=== PATIENT | male | born 1970 | race Caucasian/White ===

== ENCOUNTER 2021-10-19 03:23 | Inpatient (IN) | payer OTHER, SELFPAY ==
[2021-10-19] MEDS ORDERED: ceFAZolin (BATCH) 2 GM/100 ML BAG ONE (03:30)
[2021-10-19] MEDS ORDERED: Tranexamic Acid 1,000 MG/10 ML VIAL ONE (03:30)
[2021-10-19] MEDS ORDERED: Boostrix 0.5 ML (Tdap) VIAL ONE (03:30)
[2021-10-19 04:22] LABS: Hemoglobin 10.1 g/dL (14.0-18.0); Mean Corpuscular HGB CONC 30.1 g/dL (32.0-36.0); Mean Corpuscular Hemoglobin 25.1 pg (27.0-31.0); Mean Corpuscular Volume 83.3 fL (78.0-98.0); Mean Platelet Volume 8.3 fL (7.4-10.4); Platelet Count 382 thou/uL (130-400); RBC Distribution Width 15.8 % (11.5-14.5); Red Blood Cell (RBC) Count 4.03 mill/uL (4.70-6.10); White Blood Cell (WBC) Count 17.1 thou/uL (4.8-10.8)
[2021-10-19 04:27] LABS: Lactic Acid 5.2 mmol/L (0.5-2.2)
[2021-10-19 04:29] LABS: ALT (SGPT) 24 U/L (8-55); AST (SGOT) 33 U/L (5-34); Acetaminophen Less than 10.0 mcg/mL (10.0-30.0); Albumin 2.7 g/dL (3.5-5.0); Alcohol Less than 10 mg/dL (Less than 10); Alkaline Phosphatase 80 U/L (40-110); Anion Gap 15 mmol/L (10-20); BUN (Urea Nitrogen) 13 mg/dL (8.9-20.6); Bilirubin, Total 0.3 mg/dL (0.2-1.2); Calc. Creatinine Clearance 0 mL/min (70-130); Calcium 7.7 mg/dL (7.8-10.44); Carbon Dioxide 20 mmol/L (22-29); Chloride 108 mmol/L (98-107); Globulin 3.7 g/dL (2.4-3.5); Glucose 172 mg/dL (70-105); Magnesium 1.6 mg/dL (1.6-2.6); Potassium 3.8 mmol/L (3.5-5.1); Protein, Total 6.4 g/dL (6.0-8.3); Salicylate Less than 8.0 mg/dL (15.0-30.0); Sodium 139 mmol/L (136-145)
[2021-10-19 04:30] LABS: Lipase 57 U/L (8-78)
[2021-10-19 04:33] LABS: Phosphorus 1.9 mg/dL (2.3-4.7)
[2021-10-19] MEDS ORDERED: Ketorolac Tromethamine 30 MG/ML VIAL ONE (04:35)
[2021-10-19] MEDS ORDERED: Ondansetron PF 4 MG/2 ML Vial ONE (04:35)
[2021-10-19] MEDS ORDERED: Morphine 4 MG/ML VIAL ONE (04:35)
[2021-10-19 04:46] LABS: MDiff Complete? YES
[2021-10-19 04:47] LABS: Band 20 % (5-11); Eosinophils 1 % (0-10); Lymphocytes 8 % (21-51); Monocytes 3 % (0-10); Neutrophil 68 % (42-75)
[2021-10-19 05:40] LABS: INR-International Normal Ratio 1.1; PTT 27.4 sec (22.9-36.1); Prothrombin Time 14.3 sec (12.0-14.7)
[2021-10-19] MEDS ORDERED: Dextrose 5% in Water 1,000 ML IV PRN (05:55)
[2021-10-19] MEDS ORDERED: Insulin Regular 300 UNITS/3 ML VIAL SC PRN (05:55)
[2021-10-19] MEDS ORDERED: Ondansetron PF 4 MG/2 ML Vial IVP PRN (05:55)
[2021-10-19] MEDS ORDERED: Dextrose 50% Abboject 50 ML SYRINGE SLOW IVP PRN (05:55)
[2021-10-19] MEDS ORDERED: traMADol HCl 50 MG TAB PO PRN (06:00)
[2021-10-19] MEDS ORDERED: Fentanyl 100 MCG/2 ML VIAL SLOW IVP PRN (06:01)
[2021-10-19] MEDS ORDERED: Magnesium 2 GM/50 ML(in water) 2 GM in Premix Bag 1 BAG IVPB SCH (06:15)
[2021-10-19] MEDS ORDERED: Norepinephrine 8 MG/0.9% NS 250 ML IVPB SCH (06:15)
[2021-10-19] MEDS ORDERED: Dexamethasone 10 MG/ML VIAL ONE (06:53)
[2021-10-19] MEDS ORDERED: Norepinephrine 8 MG/0.9% NS 250 ML ONE (07:23)
[2021-10-19] MEDS ORDERED: Potassium Phosphate 30 MMOL in Sodium Chloride 0.9% 250 ML 250 ML IVPB SCH (10:00)
[2021-10-19] MEDS ORDERED: Iopamidol-370 76% 500 ML 1 ML ONE (10:53)
[2021-10-19] MEDS: Acetaminophen 500 MG TAB PO SCH ×3 (11:07→23:31)
[2021-10-19] MEDS: Famotidine/PF 20 mg/2ml Vial SLOW IVP SCH ×2 (11:08→20:10)
[2021-10-19] MEDS: Polyethylene Glycol 3350 17 GM Packet PO SCH (11:17)
[2021-10-19] MEDS: Senokot S 8.6-50 MG TAB PO SCH ×2 (11:18→20:10)
[2021-10-19 13:56] LABS: SARS-CoV-2 NAA Rapid Test Not Detected (NotDetected)
[2021-10-19] MEDS: Sodium Chloride 0.9% 1,000 ML IV SCH (16:03)
[2021-10-19] MEDS: Gabapentin 300 MG CAP PO SCH ×2 (16:04→20:08)
[2021-10-19] MEDS: hydrALAZINE 20 MG/ML VIAL SLOW IVP PRN (21:32)
[2021-10-20 05:32] LABS: #Lymphocytes 0.6 thou/uL (1.20-3.40); #Monocytes 0.4 thou/uL (0.11-0.59); #Neutrophils 8.4 thou/uL (1.40-6.50); %Eosinophils 0.1 % (0.0-10.0); %Lymphocytes 6.1 % (21.0-51.0); %Monocytes 4.6 % (0.0-10.0); %Neutrophils 89.2 % (42.0-75.0); Hemoglobin 8.2 g/dL (14.0-18.0); Mean Corpuscular Hemoglobin 25.5 pg (27.0-31.0); Mean Corpuscular Volume 85.1 fL (78.0-98.0); Mean Platelet Volume 7.5 fL (7.4-10.4); Platelet Count 280 thou/uL (130-400); RBC Distribution Width 15.7 % (11.5-14.5); White Blood Cell (WBC) Count 9.4 thou/uL (4.8-10.8)
[2021-10-20] MEDS: Acetaminophen 500 MG TAB PO SCH ×3 (05:37→17:26)
[2021-10-20 05:50] LABS: Anion Gap 9 mmol/L (10-20); BUN (Urea Nitrogen) 12 mg/dL (8.9-20.6); Calc. Creatinine Clearance 289 mL/min (70-130); Calcium 7.9 mg/dL (7.8-10.44); Carbon Dioxide 27 mmol/L (22-29); Chloride 107 mmol/L (98-107); Glucose 125 mg/dL (70-105); Magnesium 2.3 mg/dL (1.6-2.6); Phosphorus 3.4 mg/dL (2.3-4.7); Potassium 4.5 mmol/L (3.5-5.1); Sodium 138 mmol/L (136-145)
[2021-10-20] MEDS: Famotidine/PF 20 mg/2ml Vial SLOW IVP SCH ×2 (08:25→21:46)
[2021-10-20] MEDS: Aspirin 325 mg Enteric Coated Tablet PO SCH (08:25)
[2021-10-20] MEDS: Polyethylene Glycol 3350 17 GM Packet PO SCH (08:25)
[2021-10-20] MEDS: Gabapentin 300 MG CAP PO SCH ×3 (08:26→21:44)
[2021-10-20] MEDS: Ascorbic Acid 500 mg Chewable Tablet PO SCH ×2 (08:26→21:44)
[2021-10-20] MEDS: Ferrous Sulfate 325 MG TAB PO SCH ×2 (08:28→17:26)
[2021-10-20] MEDS: Senokot S 8.6-50 MG TAB PO SCH ×2 (08:28→21:44)
[2021-10-20] MEDS: Lisinopril 10 MG TAB PO SCH (08:29)
[2021-10-20] MEDS: Sodium Chloride 0.9% 1,000 ML IV SCH (16:03)
[2021-10-20] MEDS: Calcium Carbonate 600 MG + Vit D TAB PO SCH (17:26)
[2021-10-21] MEDS: Acetaminophen 500 MG TAB PO SCH ×5 (00:02→23:30)
[2021-10-21] MEDS: Cyclobenzaprine 10 MG TAB PO PRN ×2 (00:02→23:31)
[2021-10-21 06:09] LABS: Anion Gap 9 mmol/L (10-20); BUN (Urea Nitrogen) 11 mg/dL (8.9-20.6); Calc. Creatinine Clearance 305 mL/min (70-130); Calcium 8.3 mg/dL (7.8-10.44); Carbon Dioxide 29 mmol/L (22-29); Chloride 104 mmol/L (98-107); Glucose 91 mg/dL (70-105); Magnesium 1.9 mg/dL (1.6-2.6); Phosphorus 2.5 mg/dL (2.3-4.7); Potassium 4.2 mmol/L (3.5-5.1); Sodium 138 mmol/L (136-145)
[2021-10-21 06:45] LABS: #Monocytes 0.7 thou/uL (0.11-0.59); %Basophils 0.1 % (0.0-1.0); %Eosinophils 0.2 % (0.0-10.0); %Monocytes 7.3 % (0.0-10.0); %Neutrophils 82.4 % (42.0-75.0); Hemoglobin 7.5 g/dL (14.0-18.0); Mean Corpuscular Hemoglobin 25.6 pg (27.0-31.0); Mean Corpuscular Volume 85.4 fL (78.0-98.0); Platelet Count 300 thou/uL (130-400); RBC Distribution Width 16.2 % (11.5-14.5); Red Blood Cell (RBC) Count 2.92 mill/uL (4.70-6.10); White Blood Cell (WBC) Count 9.7 thou/uL (4.8-10.8)
[2021-10-21] MEDS: Senokot S 8.6-50 MG TAB PO SCH ×2 (07:57→20:59)
[2021-10-21] MEDS: Polyethylene Glycol 3350 17 GM Packet PO SCH (07:57)
[2021-10-21] MEDS: Ascorbic Acid 500 mg Chewable Tablet PO SCH ×2 (07:58→20:58)
[2021-10-21] MEDS: Aspirin 325 mg Enteric Coated Tablet PO SCH (07:58)
[2021-10-21] MEDS: Gabapentin 300 MG CAP PO SCH ×3 (07:58→20:59)
[2021-10-21] MEDS: Calcium Carbonate 600 MG + Vit D TAB PO SCH ×2 (07:58→16:59)
[2021-10-21] MEDS: Lisinopril 10 MG TAB PO SCH (07:59)
[2021-10-21] MEDS: Ferrous Sulfate 325 MG TAB PO SCH ×2 (08:00→17:00)
[2021-10-21] MEDS: Famotidine/PF 20 mg/2ml Vial SLOW IVP SCH (08:08)
[2021-10-21 08:19] LABS: Hypochromia SLIGHT = 6-15 cells (100X) (0-5/hpf); MDiff Complete? YES; Platelet Morphology Comment Appears Adequate; Polychromasia SLIGHT = 2-3 cells (100X) (0-2/hpf)
[2021-10-21] MEDS: Enoxaparin Sodium 30 MG/0.3 ML SYRINGE SC SCH (20:58)
[2021-10-21] MEDS: hydrALAZINE 20 MG/ML VIAL SLOW IVP PRN (23:39)
[2021-10-22] MEDS: Acetaminophen 500 MG TAB PO SCH ×3 (05:11→17:23)
[2021-10-22] MEDS: traMADol HCl 50 MG TAB PO PRN ×2 (05:12→14:48)
[2021-10-22 06:42] LABS: #Eosinphils 0.1 thou/uL (0.0-0.7); #Lymphocytes 0.9 thou/uL (1.20-3.40); #Monocytes 0.5 thou/uL (0.11-0.59); %Basophils 0.6 % (0.0-1.0); %Eosinophils 1.5 % (0.0-10.0); %Lymphocytes 11.3 % (21.0-51.0); %Monocytes 6.8 % (0.0-10.0); %Neutrophils 79.8 % (42.0-75.0); Hemoglobin 8.1 g/dL (14.0-18.0); Mean Corpuscular HGB CONC 31.4 g/dL (32.0-36.0); Mean Corpuscular Hemoglobin 26.2 pg (27.0-31.0); Mean Corpuscular Volume 83.7 fL (78.0-98.0); Mean Platelet Volume 7.1 fL (7.4-10.4); Platelet Count 317 thou/uL (130-400); RBC Distribution Width 16.7 % (11.5-14.5); Red Blood Cell (RBC) Count 3.09 mill/uL (4.70-6.10); White Blood Cell (WBC) Count 7.5 thou/uL (4.8-10.8)
[2021-10-22] MEDS: Gabapentin 300 MG CAP PO SCH ×3 (08:13→21:45)
[2021-10-22] MEDS: Ferrous Sulfate 325 MG TAB PO SCH ×3 (08:13→21:44)
[2021-10-22] MEDS: Ascorbic Acid 500 mg Chewable Tablet PO SCH ×2 (08:13→21:44)
[2021-10-22] MEDS: Calcium Carbonate 600 MG + Vit D TAB PO SCH ×2 (08:13→17:24)
[2021-10-22] MEDS: Senokot S 8.6-50 MG TAB PO SCH ×2 (08:14→21:46)
[2021-10-22] MEDS: Polyethylene Glycol 3350 17 GM Packet PO SCH (08:15)
[2021-10-22] MEDS: Lisinopril 10 MG TAB PO SCH ×2 (08:15→21:45)
[2021-10-22] MEDS: Aspirin 325 mg Enteric Coated Tablet PO SCH (08:15)
[2021-10-22] MEDS: Enoxaparin Sodium 30 MG/0.3 ML SYRINGE SC SCH ×2 (08:26→21:46)
[2021-10-22] MEDS ORDERED: Sodium Chloride 0.9% 500 ML IV SCH (18:00)
[2021-10-22 23:38] LABS: Bacteria/HPF None Seen HPF (None Seen); Bilirubin Negative (Negative); Blood, Urine Negative (Negative); Clarity Clear (Clear); Glucose, Urine (Dipstick) Normal (Negative); Ketone, Urine Negative (Negative); Leukocyte Negative Leu/uL (Negative); Nitrite Negative (Negative); Protein, Urine (Dipstick) Negative (Neg-Trace); RBC/HPF 0-3 HPF (0-3); Specific Gravity, Urine 1.018 (1.002-1.036); Squamous Epithelial None Seen HPF (0-3); WBC/HPF 0-3 HPF (0-3); pH, Urine 7.5 (5.0-9.0)
[2021-10-22 23:42] LABS: Urine Culture Reflex No No
[2021-10-23] MEDS: Acetaminophen 500 MG TAB PO SCH ×5 (00:21→23:56)
[2021-10-23] MEDS: Enoxaparin Sodium 30 MG/0.3 ML SYRINGE SC SCH ×2 (09:18→20:50)
[2021-10-23] MEDS: Polyethylene Glycol 3350 17 GM Packet PO SCH (09:19)
[2021-10-23] MEDS: Gabapentin 300 MG CAP PO SCH ×3 (09:19→20:49)
[2021-10-23] MEDS: Ascorbic Acid 500 mg Chewable Tablet PO SCH ×2 (09:20→20:49)
[2021-10-23] MEDS: Aspirin 325 mg Enteric Coated Tablet PO SCH (09:20)
[2021-10-23] MEDS: Ferrous Sulfate 325 MG TAB PO SCH ×2 (09:20→20:49)
[2021-10-23] MEDS: Senokot S 8.6-50 MG TAB PO SCH ×2 (09:20→20:48)
[2021-10-23] MEDS: Lisinopril 10 MG TAB PO SCH ×2 (09:21→20:49)
[2021-10-23] MEDS: Tamsulosin HCl 0.4 MG CAP PO SCH (09:21)
[2021-10-23] MEDS ORDERED: Magnesium Citrate 300 ML BOT PO SCH (09:45)
[2021-10-23] MEDS: Calcium Carbonate 600 MG + Vit D TAB PO SCH (10:08)
[2021-10-23] MEDS: Cyclobenzaprine 10 MG TAB PO PRN (13:05)
[2021-10-23] MEDS: traMADol HCl 50 MG TAB PO PRN (13:06)
[2021-10-23] MEDS: traMADol HCl 50 MG TAB PO SCH ×2 (15:34→20:48)
[2021-10-24] MEDS: traMADol HCl 50 MG TAB PO SCH ×4 (02:41→20:20)
[2021-10-24] MEDS: Acetaminophen 500 MG TAB PO SCH ×4 (05:57→23:32)
[2021-10-24] MEDS: Enoxaparin Sodium 30 MG/0.3 ML SYRINGE SC SCH ×2 (09:59→20:21)
[2021-10-24] MEDS: Ascorbic Acid 500 mg Chewable Tablet PO SCH ×2 (10:00→20:20)
[2021-10-24] MEDS: Tamsulosin HCl 0.4 MG CAP PO SCH (10:00)
[2021-10-24] MEDS: Ferrous Sulfate 325 MG TAB PO SCH ×2 (10:00→20:19)
[2021-10-24] MEDS: Gabapentin 300 MG CAP PO SCH (10:00)
[2021-10-24] MEDS: Lisinopril 10 MG TAB PO SCH ×2 (10:00→20:20)
[2021-10-24] MEDS: Senokot S 8.6-50 MG TAB PO SCH ×2 (10:02→20:22)
[2021-10-24] MEDS: Aspirin 325 mg Enteric Coated Tablet PO SCH (10:02)
[2021-10-24] MEDS: Polyethylene Glycol 3350 17 GM Packet PO SCH (10:02)
[2021-10-24] MEDS: Pregabalin 50 MG CAP PO SCH ×2 (16:49→20:18)
[2021-10-25] MEDS: Cyclobenzaprine 10 MG TAB PO PRN (02:23)
[2021-10-25] MEDS: traMADol HCl 50 MG TAB PO SCH ×4 (02:23→21:16)
[2021-10-25] MEDS: Acetaminophen 500 MG TAB PO SCH ×3 (05:24→18:21)
[2021-10-25] MEDS: Polyethylene Glycol 3350 17 GM Packet PO SCH (09:22)
[2021-10-25] MEDS: Senokot S 8.6-50 MG TAB PO SCH ×2 (09:22→21:18)
[2021-10-25] MEDS: Aspirin 325 mg Enteric Coated Tablet PO SCH (09:23)
[2021-10-25] MEDS: Pregabalin 50 MG CAP PO SCH ×3 (09:23→21:18)
[2021-10-25] MEDS: Lisinopril 10 MG TAB PO SCH ×2 (09:24→21:16)
[2021-10-25] MEDS: Tamsulosin HCl 0.4 MG CAP PO SCH (09:24)
[2021-10-25] MEDS: Ascorbic Acid 500 mg Chewable Tablet PO SCH ×2 (09:25→21:17)
[2021-10-25] MEDS: Ferrous Sulfate 325 MG TAB PO SCH ×2 (09:25→21:19)
[2021-10-25] MEDS: Enoxaparin Sodium 30 MG/0.3 ML SYRINGE SC SCH (09:26)
[2021-10-25] MEDS ORDERED: Sodium Chloride 0.9% 1,000 ML IV SCH ×2 (11:15→19:45)
[2021-10-25 11:31] LABS: #Eosinphils 0.1 thou/uL (0.0-0.7); #Lymphocytes 0.8 thou/uL (1.20-3.40); #Monocytes 0.8 thou/uL (0.11-0.59); #Neutrophils 10.3 thou/uL (1.40-6.50); %Basophils 0.1 % (0.0-1.0); %Eosinophils 0.7 % (0.0-10.0); %Lymphocytes 6.5 % (21.0-51.0); %Monocytes 6.5 % (0.0-10.0); %Neutrophils 86.2 % (42.0-75.0); Hemoglobin 8.4 g/dL (14.0-18.0); Mean Corpuscular HGB CONC 30.5 g/dL (32.0-36.0); Mean Corpuscular Hemoglobin 25.8 pg (27.0-31.0); Mean Corpuscular Volume 84.5 fL (78.0-98.0); Mean Platelet Volume 7.2 fL (7.4-10.4); Platelet Count 425 thou/uL (130-400); RBC Distribution Width 17.1 % (11.5-14.5); Red Blood Cell (RBC) Count 3.24 mill/uL (4.70-6.10); White Blood Cell (WBC) Count 11.9 thou/uL (4.8-10.8)
[2021-10-25 11:53] LABS: Anion Gap 14 mmol/L (10-20); BUN (Urea Nitrogen) 52 mg/dL (8.9-20.6); Calc. Creatinine Clearance 94 mL/min (70-130); Calcium 7.8 mg/dL (7.8-10.44); Carbon Dioxide 27 mmol/L (22-29); Chloride 100 mmol/L (98-107); Glucose 117 mg/dL (70-105); Magnesium 2.4 mg/dL (1.6-2.6); Phosphorus 5.4 mg/dL (2.3-4.7); Potassium 5.3 mmol/L (3.5-5.1); Sodium 136 mmol/L (136-145)
[2021-10-25 11:58] LABS: Troponin I Less than 0.010 ng/mL (< 0.028)
[2021-10-25 13:03] LABS: Actual Bicarbonate (HCO3a) 26.5 mEq/L (22-28); Base Excess (BEa) -1.2 mEq/L (-2.0 to +3.0); Calcium, Ionized (arterial) 1.08 mmol/L (1.12-1.30); Carboxyhemoglobin (COHb) 2.2 gm% (0.0-3.0); Hemoglobin (Hb) 8.6 g/dL (14.0-18.0); O2 Tension (PaO2), arterial 72.7 mmHg (80.0-100.0); Potassium - ABG Lab 5.15 mmol/L (3.70-5.30); pH, Arterial 7.25 (7.35-7.45)
[2021-10-25 13:04] LABS: CO2 Tension 62.4 mmHg (35.0-45.0); Puncture Site LRA
[2021-10-25 13:13] LABS: Base Excess (BEa) -0.2 mEq/L (-2.0 to +3.0); CO2 Tension 50.4 mmHg (35.0-45.0); Calcium, Ionized (arterial) 1.04 mmol/L (1.12-1.30); Carboxyhemoglobin (COHb) 1.9 gm% (0.0-3.0); Hemoglobin (Hb) 8.4 g/dL (14.0-18.0); O2 Tension (PaO2), arterial 72.4 mmHg (80.0-100.0); Potassium - ABG Lab 5.24 mmol/L (3.70-5.30); pH, Arterial 7.33 (7.35-7.45)
[2021-10-25 14:45] LABS: Puncture Site RRA
[2021-10-25] MEDS: Sodium Chloride 0.9% 1,000 ML IV SCH (15:43)
[2021-10-25] MEDS: Enoxaparin Sodium 40 MG/0.4 ML SYRINGE SC SCH (21:19)
[2021-10-26] MEDS: Acetaminophen 500 MG TAB PO SCH ×4 (00:22→18:03)
[2021-10-26] MEDS: Sodium Chloride 0.9% 1,000 ML IV SCH ×5 (00:32→23:40)
[2021-10-26] MEDS: traMADol HCl 50 MG TAB PO SCH ×4 (02:07→20:56)
[2021-10-26 05:32] LABS: Anion Gap 9 mmol/L (10-20); BUN (Urea Nitrogen) 57 mg/dL (8.9-20.6); Calc. Creatinine Clearance 182 mL/min (70-130); Calcium 7.8 mg/dL (7.8-10.44); Carbon Dioxide 30 mmol/L (22-29); Chloride 103 mmol/L (98-107); Glucose 97 mg/dL (70-105); Magnesium 2.6 mg/dL (1.6-2.6); Phosphorus 4.5 mg/dL (2.3-4.7); Potassium 5.1 mmol/L (3.5-5.1); Sodium 137 mmol/L (136-145)
[2021-10-26] MEDS ORDERED: Sodium Chloride 0.9% 1,000 ML IV SCH (06:37)
[2021-10-26] MEDS ORDERED: Calcium Chloride 1 GM/10 ML Abboject SYRINGE IVP SCH (07:45)
[2021-10-26] MEDS: Ascorbic Acid 500 mg Chewable Tablet PO SCH ×2 (09:55→20:58)
[2021-10-26] MEDS: Pregabalin 50 MG CAP PO SCH ×3 (09:55→20:58)
[2021-10-26] MEDS: Senokot S 8.6-50 MG TAB PO SCH ×2 (09:55→20:58)
[2021-10-26] MEDS: Tamsulosin HCl 0.4 MG CAP PO SCH (09:55)
[2021-10-26] MEDS: Ferrous Sulfate 325 MG TAB PO SCH ×2 (09:55→20:58)
[2021-10-26] MEDS: Aspirin 325 mg Enteric Coated Tablet PO SCH (09:55)
[2021-10-26] MEDS: Polyethylene Glycol 3350 17 GM Packet PO SCH (09:55)
[2021-10-26] MEDS: Enoxaparin Sodium 40 MG/0.4 ML SYRINGE SC SCH ×2 (10:57→20:59)
[2021-10-27] MEDS: Acetaminophen 500 MG TAB PO SCH ×5 (00:58→23:42)
[2021-10-27] MEDS: traMADol HCl 50 MG TAB PO SCH ×4 (02:00→21:39)
[2021-10-27 05:37] LABS: Anion Gap 6 mmol/L (10-20); BUN (Urea Nitrogen) 33 mg/dL (8.9-20.6); Calc. Creatinine Clearance 284 mL/min (70-130); Carbon Dioxide 33 mmol/L (22-29); Chloride 106 mmol/L (98-107); Glucose 110 mg/dL (70-105); Magnesium 2.5 mg/dL (1.6-2.6); Phosphorus 2.7 mg/dL (2.3-4.7); Potassium 5.3 mmol/L (3.5-5.1); Sodium 140 mmol/L (136-145)
[2021-10-27] MEDS: Senokot S 8.6-50 MG TAB PO SCH ×2 (08:47→21:36)
[2021-10-27] MEDS: Tamsulosin HCl 0.4 MG CAP PO SCH (08:47)
[2021-10-27] MEDS: Polyethylene Glycol 3350 17 GM Packet PO SCH (08:48)
[2021-10-27] MEDS: Aspirin 300 MG Suppository PR SCH ×2 (08:49→10:59)
[2021-10-27] MEDS: Pregabalin 50 MG CAP PO SCH ×3 (08:49→21:35)
[2021-10-27] MEDS: Ascorbic Acid 500 mg Chewable Tablet PO SCH ×2 (08:50→21:36)
[2021-10-27] MEDS: Ferrous Sulfate 325 MG TAB PO SCH ×2 (08:50→21:36)
[2021-10-27] MEDS: Enoxaparin Sodium 40 MG/0.4 ML SYRINGE SC SCH ×2 (08:50→21:34)
[2021-10-27] MEDS ORDERED: Aspirin 325 mg Enteric Coated Tablet PO SCH (11:15)
[2021-10-27] MEDS: Cyclobenzaprine 10 MG TAB PO PRN (11:41)
[2021-10-27] MEDS ORDERED: Magnesium Citrate 300 ML BOT PO SCH (19:00)
[2021-10-28 05:25] LABS: Anion Gap 11 mmol/L (10-20); BUN (Urea Nitrogen) 27 mg/dL (8.9-20.6); Calc. Creatinine Clearance 262 mL/min (70-130); Calcium 8.4 mg/dL (7.8-10.44); Carbon Dioxide 29 mmol/L (22-29); Chloride 105 mmol/L (98-107); Glucose 119 mg/dL (70-105); Magnesium 2.6 mg/dL (1.6-2.6); Phosphorus 3.6 mg/dL (2.3-4.7); Potassium 4.5 mmol/L (3.5-5.1); Sodium 140 mmol/L (136-145)
[2021-10-28] MEDS: traMADol HCl 50 MG TAB PO SCH ×3 (06:13→15:06)
[2021-10-28] MEDS: Acetaminophen 500 MG TAB PO SCH ×3 (07:25→18:17)
[2021-10-28] MEDS ORDERED: Magnesium Citrate 300 ML BOT PO SCH ×2 (09:00→19:45)
[2021-10-28] MEDS ORDERED: Aspirin 325 mg Enteric Coated Tablet PO SCH (09:00)
[2021-10-28] MEDS: Enoxaparin Sodium 40 MG/0.4 ML SYRINGE SC SCH ×2 (09:34→22:21)
[2021-10-28] MEDS: Pregabalin 50 MG CAP PO SCH ×2 (09:34→16:41)
[2021-10-28] MEDS: Tamsulosin HCl 0.4 MG CAP PO SCH (09:34)
[2021-10-28] MEDS: Ferrous Sulfate 325 MG TAB PO SCH ×2 (09:34→22:21)
[2021-10-28] MEDS: Ascorbic Acid 500 mg Chewable Tablet PO SCH ×2 (09:34→22:20)
[2021-10-28] MEDS: Senokot S 8.6-50 MG TAB PO SCH ×2 (09:34→22:21)
[2021-10-28] MEDS: Polyethylene Glycol 3350 17 GM Packet PO SCH (09:34)
[2021-10-28] MEDS: Midodrine HCl 5 MG TAB PO SCH ×3 (09:42→22:21)
[2021-10-28] MEDS ORDERED: Iopamidol-370 76% 500 ML 1 ML ONE (10:49)
[2021-10-28] MEDS ORDERED: Sodium Chloride 0.9% 1,000 ML IV SCH ×2 (16:00→20:00)
[2021-10-28] MEDS ORDERED: Furosemide 40 MG/4 ML VIAL ONE (18:50)
[2021-10-28 18:57] LABS: Actual Bicarbonate (HCO3a) 29.9 mEq/L (22-28); Base Excess (BEa) 1.7 mEq/L (-2.0 to +3.0); Calcium, Ionized (arterial) 1.13 mmol/L (1.12-1.30); Carboxyhemoglobin (COHb) 2.6 gm% (0.0-3.0); Hemoglobin (Hb) 7.4 g/dL (14.0-18.0); O2 Tension (PaO2), arterial 83.1 mmHg (80.0-100.0); Potassium - ABG Lab 5.16 mmol/L (3.70-5.30)
[2021-10-28] MEDS ORDERED: Furosemide 40 MG/4 ML VIAL SLOW IVP SCH (19:00)
[2021-10-28 19:09] LABS: #Eosinphils 0.1 thou/uL (0.0-0.7); #Lymphocytes 0.8 thou/uL (1.20-3.40); #Monocytes 0.9 thou/uL (0.11-0.59); %Basophils 0.1 % (0.0-1.0); %Eosinophils 0.5 % (0.0-10.0); %Lymphocytes 5.4 % (21.0-51.0); %Monocytes 5.9 % (0.0-10.0); %Neutrophils 88.1 % (42.0-75.0); Hemoglobin 7.1 g/dL (14.0-18.0); Mean Corpuscular Hemoglobin 26.6 pg (27.0-31.0); Mean Corpuscular Volume 88.7 fL (78.0-98.0); Mean Platelet Volume 6.8 fL (7.4-10.4); Platelet Count 449 thou/uL (130-400); Red Blood Cell (RBC) Count 2.65 mill/uL (4.70-6.10); White Blood Cell (WBC) Count 14.7 thou/uL (4.8-10.8)
[2021-10-28 19:14] LABS: CO2 Tension 73.9 mmHg (35.0-45.0); pH, Arterial 7.23 (7.35-7.45)
[2021-10-28 19:15] LABS: ALV-art Gradient 24.165 mmHg (0-20); Puncture Site RRA P
[2021-10-28] MEDS ORDERED: methylPREDNISolone Sod Succ 40 MG VIAL IVP SCH (19:15)
[2021-10-28 19:30] LABS: Troponin I Less than 0.010 ng/mL (< 0.028)
[2021-10-28 19:33] LABS: Anion Gap 13 mmol/L (10-20); BUN (Urea Nitrogen) 43 mg/dL (8.9-20.6); Calc. Creatinine Clearance 159 mL/min (70-130); Calcium 8.1 mg/dL (7.8-10.44); Carbon Dioxide 28 mmol/L (22-29); Chloride 104 mmol/L (98-107); Glucose 125 mg/dL (70-105); Magnesium 2.6 mg/dL (1.6-2.6); Phosphorus 4.8 mg/dL (2.3-4.7); Potassium 5.3 mmol/L (3.5-5.1); Sodium 140 mmol/L (136-145)
[2021-10-28] MEDS ORDERED: Sodium Bicarbonate 150 MEQ in Dextrose 5% in Water 1,000 ML IV SCH (19:45)
[2021-10-28] MEDS ORDERED: Piperacillin/Tazobactam 3.375 GM in Sodium Chloride 0.9% 100 ML IVPB SCH (20:00)
[2021-10-28] MEDS: Sodium Chloride 0.9% 1,000 ML IV SCH (20:25)
[2021-10-28 21:02] LABS: Actual Bicarbonate (HCO3a) 31.5 mEq/L (22-28); Base Excess (BEa) 3.6 mEq/L (-2.0 to +3.0); Calcium, Ionized (arterial) 1.13 mmol/L (1.12-1.30); Carboxyhemoglobin (COHb) 1.9 gm% (0.0-3.0); Hemoglobin (Hb) 6.9 g/dL (14.0-18.0); O2 Tension (PaO2), arterial 89.3 mmHg (80.0-100.0); Potassium - ABG Lab 5.03 mmol/L (3.70-5.30)
[2021-10-28 21:04] LABS: Band 10 % (5-11); Eosinophils 1 % (0-10); Lymphocytes 4 % (21-51); Monocytes 4 % (0-10)
[2021-10-28 21:06] LABS: Anisocytosis SLIGHT = 6-15 cells (100X) (0-5/hpf)
[2021-10-28 21:07] LABS: Hypochromia SLIGHT = 6-15 cells (100X) (0-5/hpf); Polychromasia SLIGHT = 2-3 cells (100X) (0-2/hpf)
[2021-10-28 21:08] LABS: Elliptocytes SLIGHT = 2-5 cells (100X) (0-1/hpf)
[2021-10-28 21:13] LABS: CO2 Tension 73.2 mmHg (35.0-45.0); pH, Arterial 7.25 (7.35-7.45)
[2021-10-28 21:14] LABS: Puncture Site RBR
[2021-10-28] MEDS ORDERED: Sodium Bicarb 50 MEQ/50 ML VIAL ONE (21:38)
[2021-10-28] MEDS ORDERED: Propofol 1,000 MG/100 ML VIAL IV ONE (21:43)
[2021-10-28] MEDS ORDERED: EPINEPHrine 1 MG/10 ML Abboject SYRINGE ONE (21:44)
[2021-10-28] MEDS ORDERED: Sodium Bicarb 50 MEQ/50 ML VIAL IVP SCH (21:45)
[2021-10-28] MEDS ORDERED: Hydrocortisone Sod Succ/PF 100 mg/2 ml Vial IVP SCH (22:00)
[2021-10-28] MEDS ORDERED: EPINEPHrine 1 MG/10 ML Abboject SYRINGE IVP SCH (22:00)
[2021-10-28 22:18] LABS: Actual Bicarbonate (HCO3a) 38.4 mEq/L (22-28); Base Excess (BEa) 12.6 mEq/L (-2.0 to +3.0); Calcium, Ionized (arterial) 1.02 mmol/L (1.12-1.30); Carboxyhemoglobin (COHb) 1.7 gm% (0.0-3.0); O2 Tension (PaO2), arterial 72.7 mmHg (80.0-100.0); Potassium - ABG Lab 4.82 mmol/L (3.70-5.30); pH, Arterial 7.41 (7.35-7.45)
[2021-10-28 22:21] LABS: Puncture Site RBA
[2021-10-28 22:40] LABS: #Eosinphils 0.1 thou/uL (0.0-0.7); #Lymphocytes 0.9 thou/uL (1.20-3.40); #Monocytes 0.7 thou/uL (0.11-0.59); #Neutrophils 13.1 thou/uL (1.40-6.50); %Basophils 0.1 % (0.0-1.0); %Eosinophils 0.5 % (0.0-10.0); %Lymphocytes 5.9 % (21.0-51.0); %Monocytes 4.9 % (0.0-10.0); %Neutrophils 88.7 % (42.0-75.0); Hemoglobin 6.4 g/dL (14.0-18.0); Mean Corpuscular HGB CONC 29.8 g/dL (32.0-36.0); Mean Corpuscular Hemoglobin 26.3 pg (27.0-31.0); Mean Corpuscular Volume 88.5 fL (78.0-98.0); Mean Platelet Volume 7.3 fL (7.4-10.4); Platelet Count 474 thou/uL (130-400); RBC Distribution Width 17.8 % (11.5-14.5); Red Blood Cell (RBC) Count 2.42 mill/uL (4.70-6.10); White Blood Cell (WBC) Count 14.8 thou/uL (4.8-10.8)
[2021-10-28 22:41] LABS: Anisocytosis SLIGHT = 6-15 cells (100X) (0-5/hpf); Band 8 % (5-11); Elliptocytes SLIGHT = 2-5 cells (100X) (0-1/hpf); Hypochromia SLIGHT = 6-15 cells (100X) (0-5/hpf); Lymphocytes 4 % (21-51); MDiff Complete? YES; Monocytes 6 % (0-10); Neutrophil 80 % (42-75); Platelet Morphology Comment Appears Increased; Polychromasia MODERATE = 3-4 cells (100X) (0-2/hpf); Reactive Lymphocytes 1 % (0-10)
[2021-10-28] MEDS: fentaNYL Citrate-0.9 % NaCl/PF 100 ML IV PRN (23:05)
[2021-10-28] MEDS ORDERED: Vecuronium 10 MG VIAL ONE (23:36)
[2021-10-28 23:49] LABS: #Lymphocytes 0.5 thou/uL (1.20-3.40); #Monocytes 0.3 thou/uL (0.11-0.59); #Neutrophils 10.7 thou/uL (1.40-6.50); %Eosinophils 0.3 % (0.0-10.0); %Lymphocytes 4.5 % (21.0-51.0); %Monocytes 2.8 % (0.0-10.0); %Neutrophils 92.4 % (42.0-75.0); Hemoglobin 5.8 g/dL (14.0-18.0); Mean Corpuscular HGB CONC 30.6 g/dL (32.0-36.0); Mean Corpuscular Volume 88.3 fL (78.0-98.0); Mean Platelet Volume 7.2 fL (7.4-10.4); Platelet Count 397 thou/uL (130-400); RBC Distribution Width 17.3 % (11.5-14.5); Red Blood Cell (RBC) Count 2.16 mill/uL (4.70-6.10); White Blood Cell (WBC) Count 11.5 thou/uL (4.8-10.8)
[2021-10-28 23:55] LABS: INR-International Normal Ratio 1.1; Prothrombin Time 14.4 sec (12.0-14.7)
[2021-10-28] MEDS ORDERED: fentaNYL Citrate/PF 100 MCG/2 ML SYRINGE ONE (23:55)
[2021-10-28] MEDS ORDERED: Phenylephrine 10 MG/ML VIAL ONE (23:55)
[2021-10-28 23:56] LABS: PTT 39.5 sec (22.9-36.1)
[2021-10-29] MEDS ORDERED: Norepinephrine 8 MG/0.9% NS 250 ML ONE (00:11)
[2021-10-29] MEDS ORDERED: Vasopressin 20 UNIT, Admixture Fee 1 EACH in Sodium Chloride 0.9% 50 ML IV SCH (00:15)
[2021-10-29] MEDS ORDERED: Rocuronium Bromide 10 MG/ML (10ML VIAL) ONE (00:20)
[2021-10-29] MEDS: Acetaminophen 500 MG TAB PO SCH ×2 (01:09→06:34)
[2021-10-29] MEDS: Piperacillin/Tazobactam 3.375 GM in Sodium Chloride 0.9% 100 ML IVPB SCH ×4 (01:09→23:51)
[2021-10-29] MEDS: Sodium Chloride 0.9% 1,000 ML IV SCH ×6 (03:00→23:51)
[2021-10-29] MEDS: Pantoprazole 80 MG in Sodium Chloride 0.9% 100 ML IVPB SCH ×3 (03:50→17:12)
[2021-10-29 04:02] LABS: Base Excess (BEa) 6.3 mEq/L (-2.0 to +3.0); CO2 Tension 45.8 mmHg (35.0-45.0); Calcium, Ionized (arterial) 1.04 mmol/L (1.12-1.30); Carboxyhemoglobin (COHb) 1.6 gm% (0.0-3.0); Hemoglobin (Hb) 8.1 g/dL (14.0-18.0); O2 Tension (PaO2), arterial 196.7 mmHg (80.0-100.0); Potassium - ABG Lab 4.84 mmol/L (3.70-5.30); pH, Arterial 7.45 (7.35-7.45)
[2021-10-29 04:04] LABS: Puncture Site LINE
[2021-10-29 04:41] LABS: #Lymphocytes 0.7 thou/uL (1.20-3.40); #Monocytes 0.4 thou/uL (0.11-0.59); %Eosinophils 0.1 % (0.0-10.0); %Lymphocytes 5.2 % (21.0-51.0); %Monocytes 3.2 % (0.0-10.0); %Neutrophils 91.5 % (42.0-75.0); Hemoglobin 7.8 g/dL (14.0-18.0); Mean Corpuscular HGB CONC 32.1 g/dL (32.0-36.0); Mean Corpuscular Hemoglobin 28.4 pg (27.0-31.0); Mean Corpuscular Volume 88.7 fL (78.0-98.0); Mean Platelet Volume 7.2 fL (7.4-10.4); Platelet Count 408 thou/uL (130-400); RBC Distribution Width 16.5 % (11.5-14.5); Red Blood Cell (RBC) Count 2.74 mill/uL (4.70-6.10); White Blood Cell (WBC) Count 13.1 thou/uL (4.8-10.8)
[2021-10-29 05:23] LABS: Anion Gap 12 mmol/L (10-20); BUN (Urea Nitrogen) 41 mg/dL (8.9-20.6); Calc. Creatinine Clearance 223 mL/min (70-130); Calcium 7.9 mg/dL (7.8-10.44); Carbon Dioxide 30 mmol/L (22-29); Chloride 106 mmol/L (98-107); Glucose 137 mg/dL (70-105); Magnesium 2.4 mg/dL (1.6-2.6); Phosphorus 2.8 mg/dL (2.3-4.7); Potassium 4.7 mmol/L (3.5-5.1); Sodium 143 mmol/L (136-145)
[2021-10-29] MEDS ORDERED: Calcium Chloride 13.6 MEQ in Sodium Chloride 0.9% 100 ML IVPB SCH (08:00)
[2021-10-29] MEDS ORDERED: Sodium Phosphate 15 MMOL in Sodium Chloride 0.9% 250 ML 250 ML IVPB SCH (08:00)
[2021-10-29 08:41] LABS: Actual Bicarbonate (HCO3a) 29.3 mEq/L (22-28); Base Excess (BEa) 4.7 mEq/L (-2.0 to +3.0); CO2 Tension 44.1 mmHg (35.0-45.0); Calcium, Ionized (arterial) 1.03 mmol/L (1.12-1.30); Carboxyhemoglobin (COHb) 1.6 gm% (0.0-3.0); Hemoglobin (Hb) 8.3 g/dL (14.0-18.0); O2 Tension (PaO2), arterial 73.2 mmHg (80.0-100.0); Potassium - ABG Lab 4.48 mmol/L (3.70-5.30); pH, Arterial 7.44 (7.35-7.45)
[2021-10-29 08:42] LABS: ALV-art Gradient 192.525 mmHg (0-20); Puncture Site LBA
[2021-10-29] MEDS: Propofol 1,000 MG/100 ML VIAL IV PRN ×4 (08:58→23:47)
[2021-10-29] MEDS ORDERED: Pantoprazole 40 MG VIAL IVP SCH (09:00)
[2021-10-29] MEDS: fentaNYL Citrate-0.9 % NaCl/PF 100 ML IV PRN (14:29)
[2021-10-29 17:01] LABS: Hemoglobin 7.4 g/dL (14.0-18.0); Mean Corpuscular HGB CONC 32.7 g/dL (32.0-36.0); Mean Corpuscular Hemoglobin 28.3 pg (27.0-31.0); Mean Corpuscular Volume 86.8 fL (78.0-98.0); Mean Platelet Volume 7.3 fL (7.4-10.4); Platelet Count 427 thou/uL (130-400); RBC Distribution Width 17.6 % (11.5-14.5); Red Blood Cell (RBC) Count 2.62 mill/uL (4.70-6.10)
[2021-10-29 17:19] LABS: Anisocytosis SLIGHT = 6-15 cells (100X) (0-5/hpf); Band 14 % (5-11); Eosinophils 2 % (0-10); Lymphocytes 7 % (21-51); MDiff Complete? YES; Metamyelocyte 1 % (0-0); Monocytes 6 % (0-10); Myelocyte 1 % (0-0); Neutrophil 69 % (42-75); Nucleated RBC 1 % (0); Ovalocytes SLIGHT = 2-5 cells (100X) (0-1/hpf); Platelet Morphology Comment Appears Increased; Polychromasia MODERATE = 3-4 cells (100X) (0-2/hpf); White Blood Cell (WBC) Count 13.6 thou/uL (4.8-10.8)
[2021-10-29 17:23] LABS: Anion Gap 11 mmol/L (10-20); BUN (Urea Nitrogen) 29 mg/dL (8.9-20.6); Calc. Creatinine Clearance 280 mL/min (70-130); Carbon Dioxide 29 mmol/L (22-29); Chloride 109 mmol/L (98-107); Glucose 124 mg/dL (70-105); Magnesium 2.5 mg/dL (1.6-2.6); Phosphorus 2.9 mg/dL (2.3-4.7); Potassium 4.7 mmol/L (3.5-5.1); Sodium 144 mmol/L (136-145)
[2021-10-30] MEDS: Propofol 1,000 MG/100 ML VIAL IV PRN ×2 (02:33→04:41)
[2021-10-30] MEDS: fentaNYL Citrate-0.9 % NaCl/PF 100 ML IV PRN (03:33)
[2021-10-30] MEDS: Pantoprazole 80 MG in Sodium Chloride 0.9% 100 ML IVPB SCH (03:33)
[2021-10-30] MEDS: Sodium Chloride 0.9% 1,000 ML IV SCH (04:42)
[2021-10-30 04:57] LABS: #Eosinphils 0.3 thou/uL (0.0-0.7); #Monocytes 0.6 thou/uL (0.11-0.59); #Neutrophils 9.4 thou/uL (1.40-6.50); %Basophils 0.1 % (0.0-1.0); %Eosinophils 3.1 % (0.0-10.0); %Lymphocytes 8.6 % (21.0-51.0); %Monocytes 5.1 % (0.0-10.0); %Neutrophils 83.1 % (42.0-75.0); Hemoglobin 6.9 g/dL (14.0-18.0); Mean Corpuscular Hemoglobin 27.9 pg (27.0-31.0); Mean Corpuscular Volume 90.1 fL (78.0-98.0); Mean Platelet Volume 7.6 fL (7.4-10.4); Platelet Count 412 thou/uL (130-400); RBC Distribution Width 17.5 % (11.5-14.5); Red Blood Cell (RBC) Count 2.48 mill/uL (4.70-6.10); White Blood Cell (WBC) Count 11.3 thou/uL (4.8-10.8)
[2021-10-30 05:22] LABS: Anion Gap 9 mmol/L (10-20); BUN (Urea Nitrogen) 26 mg/dL (8.9-20.6); Calc. Creatinine Clearance 295 mL/min (70-130); Calcium 8.1 mg/dL (7.8-10.44); Carbon Dioxide 31 mmol/L (22-29); Chloride 110 mmol/L (98-107); Glucose 108 mg/dL (70-105); Magnesium 2.6 mg/dL (1.6-2.6); Phosphorus 2.7 mg/dL (2.3-4.7); Potassium 4.4 mmol/L (3.5-5.1); Sodium 146 mmol/L (136-145)
[2021-10-30 07:19] LABS: Actual Bicarbonate (HCO3a) 27.9 mEq/L (22-28); Base Excess (BEa) 3.5 mEq/L (-2.0 to +3.0); CO2 Tension 41.8 mmHg (35.0-45.0); Calcium, Ionized (arterial) 1.07 mmol/L (1.12-1.30); Carboxyhemoglobin (COHb) 0.7 gm% (0.0-3.0); Hemoglobin (Hb) 8.5 g/dL (14.0-18.0); O2 Tension (PaO2), arterial 105.4 mmHg (80.0-100.0); Potassium - ABG Lab 4.27 mmol/L (3.70-5.30); pH, Arterial 7.44 (7.35-7.45)
[2021-10-30 07:35] LABS: Puncture Site RRA
[2021-10-30] MEDS: Piperacillin/Tazobactam 3.375 GM in Sodium Chloride 0.9% 100 ML IVPB SCH ×2 (08:04→15:10)
[2021-10-30] MEDS: Enoxaparin Sodium 40 MG/0.4 ML SYRINGE SC SCH ×2 (08:04→21:55)
[2021-10-30] MEDS: Sodium Chloride 0.45% 1,000 ML IV SCH ×3 (08:04→21:44)
[2021-10-30] MEDS ORDERED: Calcium Chloride 13.6 MEQ in Sodium Chloride 0.9% 100 ML IVPB SCH (08:15)
[2021-10-30] MEDS ORDERED: Sodium Phosphate 15 MMOL in Sodium Chloride 0.9% 250 ML 250 ML IVPB SCH (09:00)
[2021-10-30] MEDS ORDERED: Morphine 2 MG/ML VIAL SLOW IVP PRN (09:55)
[2021-10-30] MEDS ORDERED: Morphine 4 MG/ML VIAL SLOW IVP PRN (09:55)
[2021-10-30] MEDS ORDERED: Dexamethasone 10 MG in Sodium Chloride 0.9% 50 ML IVPB SCH (10:00)
[2021-10-30] MEDS ORDERED: Dexamethasone 4 mg/ml Vial ONE (10:02)
[2021-10-30] MEDS ORDERED: Dexamethasone 10 MG/ML VIAL SLOW IVP SCH (10:15)
[2021-10-30] MEDS ORDERED: Activase 2 MG VIAL CATH SCH ×2 (15:00→16:00)
[2021-10-30] MEDS: hydrALAZINE 20 MG/ML VIAL SLOW IVP PRN (16:05)
[2021-10-31] MEDS: Piperacillin/Tazobactam 3.375 GM in Sodium Chloride 0.9% 100 ML IVPB SCH ×3 (00:20→16:38)
[2021-10-31] MEDS ORDERED: Acetaminophen 500 MG TAB PER TUBE PRN ×2 (00:44→13:04)
[2021-10-31] MEDS: Pantoprazole 80 MG, Admixture Fee 1 EACH in Sodium Chloride 0.9% 100 ML IVPB SCH ×2 (04:02→11:08)
[2021-10-31] MEDS: Sodium Chloride 0.45% 1,000 ML IV SCH ×2 (04:02→11:07)
[2021-10-31 04:11] LABS: Anion Gap 12 mmol/L (10-20); BUN (Urea Nitrogen) 19 mg/dL (8.9-20.6); Calc. Creatinine Clearance 329 mL/min (70-130); Calcium 8.3 mg/dL (7.8-10.44); Carbon Dioxide 28 mmol/L (22-29); Chloride 110 mmol/L (98-107); Glucose 123 mg/dL (70-105); Magnesium 2.4 mg/dL (1.6-2.6); Phosphorus 3.5 mg/dL (2.3-4.7); Potassium 4.7 mmol/L (3.5-5.1); Sodium 145 mmol/L (136-145)
[2021-10-31 04:16] LABS: Anisocytosis SLIGHT = 6-15 cells (100X) (0-5/hpf); Band 12 % (5-11); Hemoglobin 7.4 g/dL (14.0-18.0); Hypochromia SLIGHT = 6-15 cells (100X) (0-5/hpf); Lymphocytes 9 % (21-51); MDiff Complete? YES; Mean Corpuscular HGB CONC 31.5 g/dL (32.0-36.0); Mean Corpuscular Hemoglobin 27.4 pg (27.0-31.0); Mean Corpuscular Volume 87.2 fL (78.0-98.0); Mean Platelet Volume 6.9 fL (7.4-10.4); Monocytes 2 % (0-10); Neutrophil 77 % (42-75); Nucleated RBC 2 % (0); Platelet Count 407 thou/uL (130-400); Platelet Morphology Comment Appears Increased; Polychromasia SLIGHT = 2-3 cells (100X) (0-2/hpf); Red Blood Cell (RBC) Count 2.69 mill/uL (4.70-6.10); White Blood Cell (WBC) Count 11.6 thou/uL (4.8-10.8)
[2021-10-31] MEDS: Enoxaparin Sodium 40 MG/0.4 ML SYRINGE SC SCH ×2 (08:11→21:26)
[2021-10-31] MEDS ORDERED: Morphine 4 MG/ML VIAL SLOW IVP PRN (12:59)
[2021-10-31] MEDS ORDERED: Cyclobenzaprine 10 MG TAB PO PRN (12:59)
[2021-10-31] MEDS ORDERED: traMADol HCl 50 MG TAB PO PRN ×2 (12:59)
[2021-10-31] MEDS: Gabapentin 300 MG CAP PO SCH ×2 (13:48→21:24)
[2021-10-31] MEDS: Acetaminophen 500 MG TAB PO SCH ×2 (13:49→17:47)
[2021-10-31] MEDS: Senokot S 8.6-50 MG TAB PO SCH (21:25)
[2021-10-31] MEDS: Pantoprazole 40 MG VIAL IVP SCH (21:26)
[2021-11-01] MEDS: Piperacillin/Tazobactam 3.375 GM in Sodium Chloride 0.9% 100 ML IVPB SCH ×3 (00:29→16:10)
[2021-11-01] MEDS: Acetaminophen 500 MG TAB PO SCH ×3 (01:17→14:47)
[2021-11-01 07:51] LABS: #Eosinphils 0.2 thou/uL (0.0-0.7); #Lymphocytes 0.6 thou/uL (1.20-3.40); #Monocytes 0.5 thou/uL (0.11-0.59); #Neutrophils 7.5 thou/uL (1.40-6.50); %Lymphocytes 6.7 % (21.0-51.0); %Monocytes 5.8 % (0.0-10.0); %Neutrophils 85.6 % (42.0-75.0); Hemoglobin 7.3 g/dL (14.0-18.0); Mean Corpuscular HGB CONC 32.6 g/dL (32.0-36.0); Mean Corpuscular Hemoglobin 28.8 pg (27.0-31.0); Mean Corpuscular Volume 88.6 fL (78.0-98.0); Mean Platelet Volume 7.5 fL (7.4-10.4); Platelet Count 436 thou/uL (130-400); RBC Distribution Width 19.4 % (11.5-14.5); Red Blood Cell (RBC) Count 2.51 mill/uL (4.70-6.10); White Blood Cell (WBC) Count 8.8 thou/uL (4.8-10.8)
[2021-11-01 08:07] LABS: Anion Gap 9 mmol/L (10-20); BUN (Urea Nitrogen) 18 mg/dL (8.9-20.6); Calc. Creatinine Clearance 313 mL/min (70-130); Calcium 8.4 mg/dL (7.8-10.44); Carbon Dioxide 28 mmol/L (22-29); Chloride 110 mmol/L (98-107); Glucose 98 mg/dL (70-105); Magnesium 2.1 mg/dL (1.6-2.6); Phosphorus 3.8 mg/dL (2.3-4.7); Potassium 4.4 mmol/L (3.5-5.1); Sodium 143 mmol/L (136-145)
[2021-11-01] MEDS: Pantoprazole 40 MG VIAL IVP SCH ×2 (09:30→21:00)
[2021-11-01] MEDS: Saccharomyces boulardii 250 MG CAP PO SCH (09:30)
[2021-11-01] MEDS: Polyethylene Glycol 3350 17 GM Packet PO SCH (09:30)
[2021-11-01] MEDS: Senokot S 8.6-50 MG TAB PO SCH ×2 (09:31→20:59)
[2021-11-01] MEDS: Gabapentin 300 MG CAP PO SCH ×3 (09:31→21:00)
[2021-11-01] MEDS: Enoxaparin Sodium 40 MG/0.4 ML SYRINGE SC SCH ×2 (09:41→20:59)
[2021-11-01] MEDS: Sodium Chloride 0.45% 1,000 ML IV SCH (10:55)
[2021-11-01] MEDS ORDERED: Metoclopramide HCl 10 MG/2 ML VIAL IVP SCH ×2 (11:00→14:00)
[2021-11-01] MEDS: Acetaminophen 650 MG/20.3 ML UDCUP PO SCH (20:59)
[2021-11-01] MEDS: Metoclopramide HCl 10 MG/2 ML VIAL IVP SCH (22:29)
[2021-11-02] MEDS: Piperacillin/Tazobactam 3.375 GM in Sodium Chloride 0.9% 100 ML IVPB SCH ×3 (00:40→15:31)
[2021-11-02] MEDS: Acetaminophen 650 MG/20.3 ML UDCUP PO SCH ×4 (00:41→20:47)
[2021-11-02 04:02] LABS: #Eosinphils 0.2 thou/uL (0.0-0.7); #Lymphocytes 0.7 thou/uL (1.20-3.40); #Monocytes 0.5 thou/uL (0.11-0.59); #Neutrophils 7.8 thou/uL (1.40-6.50); %Basophils 0.1 % (0.0-1.0); %Eosinophils 1.9 % (0.0-10.0); %Lymphocytes 7.1 % (21.0-51.0); %Monocytes 5.9 % (0.0-10.0); %Neutrophils 85.1 % (42.0-75.0); Hemoglobin 7.2 g/dL (14.0-18.0); Mean Corpuscular HGB CONC 31.2 g/dL (32.0-36.0); Mean Corpuscular Hemoglobin 27.6 pg (27.0-31.0); Mean Corpuscular Volume 88.5 fL (78.0-98.0); Mean Platelet Volume 6.9 fL (7.4-10.4); Platelet Count 411 thou/uL (130-400); RBC Distribution Width 18.7 % (11.5-14.5); Red Blood Cell (RBC) Count 2.61 mill/uL (4.70-6.10); White Blood Cell (WBC) Count 9.2 thou/uL (4.8-10.8)
[2021-11-02 04:23] LABS: Anion Gap 9 mmol/L (10-20); BUN (Urea Nitrogen) 14 mg/dL (8.9-20.6); Calc. Creatinine Clearance 317 mL/min (70-130); Calcium 8.2 mg/dL (7.8-10.44); Carbon Dioxide 30 mmol/L (22-29); Chloride 105 mmol/L (98-107); Glucose 87 mg/dL (70-105); Magnesium 2.1 mg/dL (1.6-2.6); Phosphorus 4.3 mg/dL (2.3-4.7); Potassium 4.3 mmol/L (3.5-5.1); Sodium 140 mmol/L (136-145)
[2021-11-02] MEDS: Metoclopramide HCl 10 MG/2 ML VIAL IVP SCH ×3 (05:23→21:00)
[2021-11-02] MEDS: Saccharomyces boulardii 250 MG CAP PO SCH (08:38)
[2021-11-02] MEDS: Gabapentin 300 MG CAP PO SCH ×3 (08:38→20:48)
[2021-11-02] MEDS: Enoxaparin Sodium 40 MG/0.4 ML SYRINGE SC SCH ×2 (08:38→20:47)
[2021-11-02] MEDS: Senokot S 8.6-50 MG TAB PO SCH ×2 (08:39→20:47)
[2021-11-02] MEDS: Pantoprazole 40 MG VIAL IVP SCH ×2 (08:39→20:47)
[2021-11-02] MEDS: Polyethylene Glycol 3350 17 GM Packet PO SCH (08:39)
[2021-11-02] MEDS: Acetaminophen 500 MG TAB PO SCH (16:50)
[2021-11-03] MEDS: Piperacillin/Tazobactam 3.375 GM in Sodium Chloride 0.9% 100 ML IVPB SCH (00:24)
[2021-11-03] MEDS: Acetaminophen 650 MG/20.3 ML UDCUP PO SCH ×4 (02:11→20:02)
[2021-11-03 03:46] LABS: #Eosinphils 0.2 thou/uL (0.0-0.7); #Lymphocytes 0.8 thou/uL (1.20-3.40); #Monocytes 0.5 thou/uL (0.11-0.59); #Neutrophils 7.7 thou/uL (1.40-6.50); %Basophils 0.2 % (0.0-1.0); %Lymphocytes 9.1 % (21.0-51.0); %Monocytes 5.8 % (0.0-10.0); Hemoglobin 7.6 g/dL (14.0-18.0); Mean Corpuscular Hemoglobin 27.9 pg (27.0-31.0); Mean Platelet Volume 6.9 fL (7.4-10.4); Platelet Count 418 thou/uL (130-400); RBC Distribution Width 18.7 % (11.5-14.5); Red Blood Cell (RBC) Count 2.73 mill/uL (4.70-6.10); White Blood Cell (WBC) Count 9.3 thou/uL (4.8-10.8)
[2021-11-03 04:11] LABS: Anion Gap 9 mmol/L (10-20); BUN (Urea Nitrogen) 10 mg/dL (8.9-20.6); Calc. Creatinine Clearance 365 mL/min (70-130); Calcium 7.9 mg/dL (7.8-10.44); Carbon Dioxide 32 mmol/L (22-29); Chloride 103 mmol/L (98-107); Glucose 84 mg/dL (70-105); Magnesium 1.9 mg/dL (1.6-2.6); Phosphorus 3.4 mg/dL (2.3-4.7); Potassium 4.2 mmol/L (3.5-5.1); Sodium 140 mmol/L (136-145)
[2021-11-03] MEDS: Metoclopramide HCl 10 MG/2 ML VIAL IVP SCH ×3 (05:21→22:10)
[2021-11-03] MEDS ORDERED: PHOS-NAK 1 PKT PACK PO SCH ×2 (07:30→12:00)
[2021-11-03] MEDS: Enoxaparin Sodium 40 MG/0.4 ML SYRINGE SC SCH ×2 (10:00→20:03)
[2021-11-03] MEDS: Pantoprazole 40 MG VIAL IVP SCH ×2 (10:00→20:04)
[2021-11-03] MEDS: Gabapentin 300 MG CAP PO SCH ×3 (11:17→20:03)
[2021-11-03] MEDS: Polyethylene Glycol 3350 17 GM Packet PO SCH (11:19)
[2021-11-03] MEDS: Senokot S 8.6-50 MG TAB PO SCH ×2 (11:20→20:04)
[2021-11-03] MEDS: Saccharomyces boulardii 250 MG CAP PO SCH (11:21)
[2021-11-04] MEDS: Acetaminophen 650 MG/20.3 ML UDCUP PO SCH ×4 (02:07→21:25)
[2021-11-04 04:25] LABS: #Eosinphils 0.1 thou/uL (0.0-0.7); #Lymphocytes 0.8 thou/uL (1.20-3.40); #Monocytes 0.4 thou/uL (0.11-0.59); #Neutrophils 6.7 thou/uL (1.40-6.50); %Eosinophils 1.3 % (0.0-10.0); %Lymphocytes 9.4 % (21.0-51.0); %Monocytes 5.1 % (0.0-10.0); %Neutrophils 84.1 % (42.0-75.0); Hemoglobin 7.5 g/dL (14.0-18.0); Mean Corpuscular Hemoglobin 27.7 pg (27.0-31.0); Mean Corpuscular Volume 89.2 fL (78.0-98.0); Mean Platelet Volume 7.3 fL (7.4-10.4); Platelet Count 454 thou/uL (130-400); RBC Distribution Width 18.7 % (11.5-14.5); Red Blood Cell (RBC) Count 2.71 mill/uL (4.70-6.10)
[2021-11-04 04:29] LABS: Anion Gap 9 mmol/L (10-20); BUN (Urea Nitrogen) 8 mg/dL (8.9-20.6); Calc. Creatinine Clearance 367 mL/min (70-130); Calcium 8.2 mg/dL (7.8-10.44); Carbon Dioxide 31 mmol/L (22-29); Chloride 102 mmol/L (98-107); Glucose 81 mg/dL (70-105); Magnesium 1.9 mg/dL (1.6-2.6); Phosphorus 3.4 mg/dL (2.3-4.7); Potassium 3.7 mmol/L (3.5-5.1); Sodium 138 mmol/L (136-145)
[2021-11-04] MEDS: Metoclopramide HCl 10 MG/2 ML VIAL IVP SCH ×2 (05:10→14:11)
[2021-11-04] MEDS ORDERED: PHOS-NAK 1 PKT PACK PO SCH (07:30)
[2021-11-04] MEDS ORDERED: Potassium Chloride 20 MEQ TAB PO SCH (07:30)
[2021-11-04] MEDS: Ascorbic Acid 500 mg Chewable Tablet PO SCH ×2 (08:56→21:28)
[2021-11-04] MEDS: Senokot S 8.6-50 MG TAB PO SCH ×2 (08:58→21:27)
[2021-11-04] MEDS: Gabapentin 300 MG CAP PO SCH ×3 (08:58→21:30)
[2021-11-04] MEDS: Enoxaparin Sodium 40 MG/0.4 ML SYRINGE SC SCH ×2 (08:58→21:27)
[2021-11-04] MEDS: Saccharomyces boulardii 250 MG CAP PO SCH (09:00)
[2021-11-04] MEDS: Pantoprazole 40 MG VIAL IVP SCH ×2 (09:00→21:28)
[2021-11-04] MEDS: Ferrous Sulfate 325 MG TAB PO SCH ×3 (09:08→21:28)
[2021-11-04] MEDS: Polyethylene Glycol 3350 17 GM Packet PO SCH (09:09)
[2021-11-05] MEDS: Metoclopramide HCl 10 MG/2 ML VIAL IVP SCH ×3 (00:03→15:30)
[2021-11-05] MEDS: Acetaminophen 650 MG/20.3 ML UDCUP PO SCH ×2 (01:44→17:16)
[2021-11-05 06:57] LABS: #Eosinphils 0.1 thou/uL (0.0-0.7); #Lymphocytes 0.8 thou/uL (1.20-3.40); #Monocytes 0.5 thou/uL (0.11-0.59); #Neutrophils 6.8 thou/uL (1.40-6.50); %Basophils 0.2 % (0.0-1.0); %Eosinophils 1.5 % (0.0-10.0); %Monocytes 5.9 % (0.0-10.0); %Neutrophils 82.4 % (42.0-75.0); Hemoglobin 7.7 g/dL (14.0-18.0); Mean Corpuscular HGB CONC 30.5 g/dL (32.0-36.0); Mean Corpuscular Hemoglobin 27.6 pg (27.0-31.0); Mean Corpuscular Volume 90.6 fL (78.0-98.0); Mean Platelet Volume 7.3 fL (7.4-10.4); Platelet Count 564 thou/uL (130-400); RBC Distribution Width 19.5 % (11.5-14.5); Red Blood Cell (RBC) Count 2.78 mill/uL (4.70-6.10); White Blood Cell (WBC) Count 8.3 thou/uL (4.8-10.8)
[2021-11-05 07:31] LABS: Anion Gap 11 mmol/L (10-20); BUN (Urea Nitrogen) 6 mg/dL (8.9-20.6); Calc. Creatinine Clearance 334 mL/min (70-130); Calcium 7.9 mg/dL (7.8-10.44); Carbon Dioxide 30 mmol/L (22-29); Chloride 103 mmol/L (98-107); Glucose 86 mg/dL (70-105); Magnesium 2.1 mg/dL (1.6-2.6); Phosphorus 3.5 mg/dL (2.3-4.7); Sodium 140 mmol/L (136-145)
[2021-11-05] MEDS: Saccharomyces boulardii 250 MG CAP PO SCH (09:35)
[2021-11-05] MEDS: Ferrous Sulfate 325 MG TAB PO SCH ×2 (09:35→14:55)
[2021-11-05] MEDS: Polyethylene Glycol 3350 17 GM Packet PO SCH ×2 (09:35→14:55)
[2021-11-05] MEDS: Senokot S 8.6-50 MG TAB PO SCH ×2 (09:35→14:55)
[2021-11-05] MEDS: Ascorbic Acid 500 mg Chewable Tablet PO SCH ×2 (09:35→14:54)
[2021-11-05] MEDS: Gabapentin 300 MG CAP PO SCH ×2 (09:36→15:30)
[2021-11-05] MEDS: Enoxaparin Sodium 40 MG/0.4 ML SYRINGE SC SCH (09:36)
[2021-11-05] MEDS: Pantoprazole 40 MG VIAL IVP SCH (09:45)
[2021-11-05] MEDS: Acetaminophen 325 MG TAB PO SCH ×2 (14:56→17:40)
[2021-11-05] MEDS ORDERED: Sodium Chloride 0.9% 1,000 ML IV SCH (16:45)
[2021-11-05] MEDS ORDERED: fentaNYL Citrate/PF 100 MCG/2 ML SYRINGE ONE (19:11)
[2021-11-05] MEDS ORDERED: Lidocaine 1% PF 5 ML VIAL ONE (19:40)
[2021-11-05] MEDS ORDERED: Dexamethasone 20 MG/5 ML VIAL ONE (19:40)
[2021-11-05] MEDS ORDERED: PROPOFOL 200 MG/20 ML VIAL ONE (19:40)
[2021-11-05] MEDS ORDERED: Glycopyrrolate 0.2 MG/ML 5 ML SYRINGE ONE (19:40)
[2021-11-05] MEDS ORDERED: Succinylcholine 200 MG/10 ml SYRINGE FS ONE (19:40)
[2021-11-05] MEDS ORDERED: Rocuronium Bromide 10 MG/ML (10ML VIAL) ONE (19:40)
[2021-11-05] MEDS ORDERED: Ondansetron PF 4 MG/2 ML Vial ONE (19:40)
[2021-11-05] MEDS ORDERED: Ondansetron HCl/PF 4 MG/2 ML Vial IVP PRN (21:09)
[2021-11-05] MEDS ORDERED: Promethazine HCl 25 MG/ML VIAL IM PRN (21:09)
[2021-11-05] MEDS ORDERED: Promethazine HCl 25 MG/ML VIAL IVPB PRN (21:09)
[2021-11-06] MEDS: Ascorbic Acid 500 mg Chewable Tablet PO SCH ×3 (00:01→20:42)
[2021-11-06] MEDS: Gabapentin 300 MG CAP PO SCH ×4 (00:02→20:42)
[2021-11-06] MEDS: Senokot S 8.6-50 MG TAB PO SCH ×3 (00:02→20:42)
[2021-11-06] MEDS: Enoxaparin Sodium 40 MG/0.4 ML SYRINGE SC SCH ×3 (00:03→20:42)
[2021-11-06] MEDS: Ferrous Sulfate 325 MG TAB PO SCH ×3 (00:03→20:42)
[2021-11-06] MEDS: Pantoprazole 40 MG VIAL IVP SCH ×3 (00:04→20:42)
[2021-11-06] MEDS: Metoclopramide HCl 10 MG/2 ML VIAL IVP SCH ×4 (00:04→20:42)
[2021-11-06] MEDS: hydrALAZINE 20 MG/ML VIAL SLOW IVP PRN (00:04)
[2021-11-06] MEDS: Acetaminophen 325 MG TAB PO SCH ×5 (00:04→23:29)
[2021-11-06 05:40] LABS: #Lymphocytes 0.5 thou/uL (1.20-3.40); #Monocytes 0.4 thou/uL (0.11-0.59); #Neutrophils 13.8 thou/uL (1.40-6.50); %Eosinophils 0.1 % (0.0-10.0); %Lymphocytes 3.4 % (21.0-51.0); %Monocytes 2.4 % (0.0-10.0); %Neutrophils 94.1 % (42.0-75.0); Hemoglobin 8.3 g/dL (14.0-18.0); Mean Corpuscular HGB CONC 30.5 g/dL (32.0-36.0); Mean Corpuscular Hemoglobin 27.5 pg (27.0-31.0); Mean Corpuscular Volume 90.1 fL (78.0-98.0); Mean Platelet Volume 6.9 fL (7.4-10.4); Platelet Count 591 thou/uL (130-400); Red Blood Cell (RBC) Count 3.01 mill/uL (4.70-6.10); White Blood Cell (WBC) Count 14.7 thou/uL (4.8-10.8)
[2021-11-06] MEDS: Sodium Chloride 0.9% 1,000 ML IV SCH ×2 (05:44)
[2021-11-06 06:08] LABS: Anion Gap 14 mmol/L (10-20); BUN (Urea Nitrogen) 8 mg/dL (8.9-20.6); Calc. Creatinine Clearance 324 mL/min (70-130); Calcium 7.8 mg/dL (7.8-10.44); Carbon Dioxide 27 mmol/L (22-29); Chloride 102 mmol/L (98-107); Glucose 109 mg/dL (70-105); Magnesium 1.9 mg/dL (1.6-2.6); Phosphorus 3.7 mg/dL (2.3-4.7); Potassium 4.8 mmol/L (3.5-5.1); Sodium 138 mmol/L (136-145)
[2021-11-06] MEDS: Polyethylene Glycol 3350 17 GM Packet PO SCH (08:49)
[2021-11-06] MEDS: Saccharomyces boulardii 250 MG CAP PO SCH (08:50)
[2021-11-06] MEDS ORDERED: Magnesium 2 GM/50 ML(in water) 2 GM in Premix Bag 1 BAG IVPB SCH (14:00)
[2021-11-07] MEDS: Acetaminophen 325 MG TAB PO SCH ×4 (05:41→23:26)
[2021-11-07] MEDS: Metoclopramide HCl 10 MG/2 ML VIAL IVP SCH ×3 (05:41→21:13)
[2021-11-07 06:42] LABS: #Eosinphils 0.1 thou/uL (0.0-0.7); #Lymphocytes 0.8 thou/uL (1.20-3.40); #Monocytes 0.7 thou/uL (0.11-0.59); #Neutrophils 6.4 thou/uL (1.40-6.50); %Basophils 0.2 % (0.0-1.0); %Eosinophils 1.4 % (0.0-10.0); %Lymphocytes 10.4 % (21.0-51.0); %Monocytes 8.3 % (0.0-10.0); %Neutrophils 79.7 % (42.0-75.0); Anisocytosis SLIGHT = 6-15 cells (100X) (0-5/hpf); Hemoglobin 7.9 g/dL (14.0-18.0); MDiff Complete? YES; Mean Corpuscular Hemoglobin 27.3 pg (27.0-31.0); Mean Corpuscular Volume 90.9 fL (78.0-98.0); Mean Platelet Volume 6.7 fL (7.4-10.4); Platelet Count 549 thou/uL (130-400); Platelet Morphology Comment Appears Increased; RBC Distribution Width 19.2 % (11.5-14.5); Red Blood Cell (RBC) Count 2.89 mill/uL (4.70-6.10)
[2021-11-07 07:08] LABS: Anion Gap 9 mmol/L (10-20); BUN (Urea Nitrogen) 10 mg/dL (8.9-20.6); Calc. Creatinine Clearance 355 mL/min (70-130); Calcium 8.1 mg/dL (7.8-10.44); Carbon Dioxide 32 mmol/L (22-29); Chloride 103 mmol/L (98-107); Glucose 82 mg/dL (70-105); Magnesium 2.1 mg/dL (1.6-2.6); Phosphorus 3.2 mg/dL (2.3-4.7); Potassium 4.2 mmol/L (3.5-5.1); Sodium 140 mmol/L (136-145)
[2021-11-07] MEDS: Enoxaparin Sodium 40 MG/0.4 ML SYRINGE SC SCH ×2 (08:40→21:12)
[2021-11-07] MEDS: Pantoprazole 40 MG VIAL IVP SCH ×2 (08:40→21:13)
[2021-11-07] MEDS: Polyethylene Glycol 3350 17 GM Packet PO SCH (08:42)
[2021-11-07] MEDS: Saccharomyces boulardii 250 MG CAP PO SCH (08:42)
[2021-11-07] MEDS: Ascorbic Acid 500 mg Chewable Tablet PO SCH ×2 (08:42→21:12)
[2021-11-07] MEDS: Senokot S 8.6-50 MG TAB PO SCH ×2 (08:42→21:13)
[2021-11-07] MEDS: Ferrous Sulfate 325 MG TAB PO SCH ×2 (08:42→21:12)
[2021-11-07] MEDS: Gabapentin 300 MG CAP PO SCH ×3 (08:47→21:12)
[2021-11-07 11:18] VITALS: BMI 53.5
[2021-11-08] MEDS: Acetaminophen 325 MG TAB PO SCH ×3 (05:43→19:46)
[2021-11-08] MEDS: Metoclopramide HCl 10 MG/2 ML VIAL IVP SCH ×3 (05:43→21:05)
[2021-11-08] MEDS ORDERED: Morphine 4 MG/ML VIAL SLOW IVP SCH (09:00)
[2021-11-08] MEDS: Saccharomyces boulardii 250 MG CAP PO SCH (10:34)
[2021-11-08] MEDS: Gabapentin 300 MG CAP PO SCH ×3 (10:34→21:05)
[2021-11-08] MEDS: Ascorbic Acid 500 mg Chewable Tablet PO SCH ×2 (10:36→21:04)
[2021-11-08] MEDS: Enoxaparin Sodium 40 MG/0.4 ML SYRINGE SC SCH ×2 (10:36→21:04)
[2021-11-08] MEDS: Pantoprazole 40 MG VIAL IVP SCH ×2 (10:36→21:05)
[2021-11-08] MEDS: Ferrous Sulfate 325 MG TAB PO SCH ×2 (10:36→21:04)
[2021-11-08] MEDS: Senokot S 8.6-50 MG TAB PO SCH ×2 (19:43→21:05)
[2021-11-08] MEDS: Polyethylene Glycol 3350 17 GM Packet PO SCH (19:43)
[2021-11-09] MEDS: Acetaminophen 325 MG TAB PO SCH ×5 (00:58→23:05)
[2021-11-09] MEDS: Metoclopramide HCl 10 MG/2 ML VIAL IVP SCH ×3 (05:37→20:57)
[2021-11-09] MEDS: Senokot S 8.6-50 MG TAB PO SCH ×2 (08:17→20:49)
[2021-11-09] MEDS: Enoxaparin Sodium 40 MG/0.4 ML SYRINGE SC SCH ×2 (08:18→20:49)
[2021-11-09] MEDS: Polyethylene Glycol 3350 17 GM Packet PO SCH (08:18)
[2021-11-09] MEDS: Pantoprazole 40 MG VIAL IVP SCH ×2 (08:19→20:50)
[2021-11-09] MEDS: Gabapentin 300 MG CAP PO SCH ×3 (08:19→20:50)
[2021-11-09] MEDS: Ascorbic Acid 500 mg Chewable Tablet PO SCH ×2 (08:19→20:49)
[2021-11-09] MEDS: Ferrous Sulfate 325 MG TAB PO SCH ×2 (08:19→20:49)
[2021-11-09] MEDS: Saccharomyces boulardii 250 MG CAP PO SCH (08:19)
[2021-11-10] MEDS: Metoclopramide HCl 10 MG/2 ML VIAL IVP SCH ×3 (05:54→20:42)
[2021-11-10] MEDS: Acetaminophen 325 MG TAB PO SCH ×3 (05:54→17:31)
[2021-11-10] MEDS: Ascorbic Acid 500 mg Chewable Tablet PO SCH ×2 (08:13→20:43)
[2021-11-10] MEDS: Ferrous Sulfate 325 MG TAB PO SCH ×2 (08:13→20:43)
[2021-11-10] MEDS: Gabapentin 300 MG CAP PO SCH ×3 (08:13→20:43)
[2021-11-10] MEDS: Pantoprazole 40 MG VIAL IVP SCH ×2 (08:14→20:42)
[2021-11-10] MEDS: Saccharomyces boulardii 250 MG CAP PO SCH (08:14)
[2021-11-10] MEDS: Enoxaparin Sodium 40 MG/0.4 ML SYRINGE SC SCH ×2 (08:14→20:42)
[2021-11-10] MEDS: Polyethylene Glycol 3350 17 GM Packet PO SCH (08:14)
[2021-11-10] MEDS: Senokot S 8.6-50 MG TAB PO SCH ×2 (08:14→20:43)
[2021-11-11] MEDS: Acetaminophen 325 MG TAB PO SCH ×5 (00:40→23:45)
[2021-11-11] MEDS: Metoclopramide HCl 10 MG/2 ML VIAL IVP SCH ×3 (05:21→21:09)
[2021-11-11] MEDS: Saccharomyces boulardii 250 MG CAP PO SCH (09:16)
[2021-11-11] MEDS: Gabapentin 300 MG CAP PO SCH ×3 (09:16→21:09)
[2021-11-11] MEDS: Enoxaparin Sodium 40 MG/0.4 ML SYRINGE SC SCH ×2 (09:16→21:10)
[2021-11-11] MEDS: Ferrous Sulfate 325 MG TAB PO SCH ×2 (09:17→21:08)
[2021-11-11] MEDS: Ascorbic Acid 500 mg Chewable Tablet PO SCH ×2 (09:17→21:09)
[2021-11-11] MEDS: Pantoprazole 40 MG VIAL IVP SCH ×2 (09:18→21:10)
[2021-11-11] MEDS: Polyethylene Glycol 3350 17 GM Packet PO SCH (09:18)
[2021-11-11] MEDS: Senokot S 8.6-50 MG TAB PO SCH ×2 (09:19→21:10)
[2021-11-12] MEDS: Acetaminophen 325 MG TAB PO SCH ×4 (05:55→23:48)
[2021-11-12] MEDS: Metoclopramide HCl 10 MG/2 ML VIAL IVP SCH (05:56)
[2021-11-12] MEDS: Polyethylene Glycol 3350 17 GM Packet PO SCH (09:28)
[2021-11-12] MEDS: Senokot S 8.6-50 MG TAB PO SCH ×2 (09:28→21:04)
[2021-11-12] MEDS: Enoxaparin Sodium 40 MG/0.4 ML SYRINGE SC SCH ×2 (09:30→21:04)
[2021-11-12] MEDS: Gabapentin 300 MG CAP PO SCH ×3 (09:31→21:04)
[2021-11-12] MEDS: Ascorbic Acid 500 mg Chewable Tablet PO SCH ×2 (09:31→21:03)
[2021-11-12] MEDS: Ferrous Sulfate 325 MG TAB PO SCH ×2 (09:31→21:03)
[2021-11-12] MEDS: Saccharomyces boulardii 250 MG CAP PO SCH (09:32)
[2021-11-12] MEDS: Pantoprazole 40 MG VIAL IVP SCH (09:40)
[2021-11-13] MEDS: Acetaminophen 325 MG TAB PO SCH ×3 (05:47→17:39)
[2021-11-13] MEDS: Ascorbic Acid 500 mg Chewable Tablet PO SCH ×2 (08:13→21:36)
[2021-11-13] MEDS: Enoxaparin Sodium 40 MG/0.4 ML SYRINGE SC SCH ×2 (08:13→21:34)
[2021-11-13] MEDS: Gabapentin 300 MG CAP PO SCH ×3 (08:14→21:35)
[2021-11-13] MEDS: Ferrous Sulfate 325 MG TAB PO SCH ×2 (08:14→21:36)
[2021-11-13] MEDS: Saccharomyces boulardii 250 MG CAP PO SCH (08:15)
[2021-11-13] MEDS: Senokot S 8.6-50 MG TAB PO SCH ×2 (09:34→21:35)
[2021-11-13] MEDS: Polyethylene Glycol 3350 17 GM Packet PO SCH (09:48)
[2021-11-14] MEDS: Acetaminophen 325 MG TAB PO SCH ×4 (00:09→17:08)
[2021-11-14] MEDS: Ascorbic Acid 500 mg Chewable Tablet PO SCH ×2 (07:56→21:39)
[2021-11-14] MEDS: Ferrous Sulfate 325 MG TAB PO SCH ×2 (07:56→21:40)
[2021-11-14] MEDS: Gabapentin 300 MG CAP PO SCH ×3 (07:58→21:39)
[2021-11-14] MEDS: Saccharomyces boulardii 250 MG CAP PO SCH (07:58)
[2021-11-14] MEDS: Polyethylene Glycol 3350 17 GM Packet PO SCH (07:59)
[2021-11-14] MEDS: Senokot S 8.6-50 MG TAB PO SCH (07:59)
[2021-11-14] MEDS: Enoxaparin Sodium 40 MG/0.4 ML SYRINGE SC SCH ×2 (07:59→21:40)
[2021-11-15] MEDS: Senokot S 8.6-50 MG TAB PO SCH ×2 (00:31→08:10)
[2021-11-15] MEDS: Acetaminophen 325 MG TAB PO SCH ×3 (00:31→12:12)
[2021-11-15 05:49] LABS: Hemoglobin 8.4 g/dL (14.0-18.0); Platelet Count 470 thou/uL (130-400)
[2021-11-15] MEDS: Ferrous Sulfate 325 MG TAB PO SCH (08:06)
[2021-11-15] MEDS: Enoxaparin Sodium 40 MG/0.4 ML SYRINGE SC SCH (08:06)
[2021-11-15] MEDS: Ascorbic Acid 500 mg Chewable Tablet PO SCH (08:06)
[2021-11-15] MEDS: Saccharomyces boulardii 250 MG CAP PO SCH (08:07)
[2021-11-15] MEDS: Gabapentin 300 MG CAP PO SCH (08:08)
[2021-11-15] MEDS: Polyethylene Glycol 3350 17 GM Packet PO SCH (08:10)
[2021-11-15 13:05] VITALS: BP 146/78; TEMP 97.7
== END 2021-11-15 13:49 | disposition home or self-care (01) | DRG 981 ==
LOC: ERS 03:23 → CCU 03:43 → EEVIPCON 03:43 → SJJU 10-20 15:06 → CCU 10-25 11:52 → SURG A 10-28 10:57 → CCU 10-28 21:00 → SJJU 11-04 19:31
PROVIDERS: ADMIT Surgery; ATTEND Surgery
PROC: 3E033XZ Introduction of Vasopressor into Peripheral Vein, Percutaneous Approach (ICD-10-PCS; 2021-10-19)
PROC: 30233N1 Transfusion of Nonautologous Red Blood Cells into Peripheral Vein, Percutaneous Approach (ICD-10-PCS; 2021-10-19)
PROC: 06HY33Z Insertion of Infusion Device into Lower Vein, Percutaneous Approach (ICD-10-PCS; 2021-10-19)
PROC: 5A09357 Assistance with Respiratory Ventilation, Less than 24 Consecutive Hours, Continuous Positive Airway Pressure (ICD-10-PCS; 2021-10-19)
PROC: 0DU607Z Supplement Stomach with Autologous Tissue Substitute, Open Approach (ICD-10-PCS; principal; 2021-10-28)
PROC: 5A09357 Assistance with Respiratory Ventilation, Less than 24 Consecutive Hours, Continuous Positive Airway Pressure (ICD-10-PCS; 2021-10-30)
PROC: 0DH67UZ Insertion of Feeding Device into Stomach, Via Natural or Artificial Opening (ICD-10-PCS; 2021-11-01)
PROC: 3E0G76Z Introduction of Nutritional Substance into Upper GI, Via Natural or Artificial Opening (ICD-10-PCS; 2021-11-01)
PROC: 0JQ80ZZ Repair Abdomen Subcutaneous Tissue and Fascia, Open Approach (ICD-10-PCS; 2021-11-05)
DX: S14.122A Central cord syndrome at C2 level of cervical spinal cord, initial encounter (principal); R57.8 Other shock; K25.5 Chronic or unspecified gastric ulcer with perforation; J96.00 Acute respiratory failure, unspecified whether with hypoxia or hypercapnia; S22.038A Other fracture of third thoracic vertebra, initial encounter for closed fracture; S22.018A Other fracture of first thoracic vertebra, initial encounter for closed fracture; S22.31XA Fracture of one rib, right side, initial encounter for closed fracture; Z68.43 Body mass index [BMI] 50.0-59.9, adult; T81.31XA Disruption of external operation (surgical) wound, not elsewhere classified, initial encounter; D62 Acute posthemorrhagic anemia; N17.9 Acute kidney failure, unspecified; E66.2 Morbid (severe) obesity with alveolar hypoventilation; Z23 Encounter for immunization; Z20.822 Contact with and (suspected) exposure to COVID-19; S12.14XA Type III traumatic spondylolisthesis of second cervical vertebra, initial encounter for closed fracture; S12.500A Unspecified displaced fracture of sixth cervical vertebra, initial encounter for closed fracture; S12.600A Unspecified displaced fracture of seventh cervical vertebra, initial encounter for closed fracture; I10 Essential (primary) hypertension; S00.03XA Contusion of scalp, initial encounter; E83.39 Other disorders of phosphorus metabolism; R74.02 Elevation of levels of lactic acid dehydrogenase [LDH]; I95.1 Orthostatic hypotension; S44.91XA Injury of unspecified nerve at shoulder and upper arm level, right arm, initial encounter; D72.829 Elevated white blood cell count, unspecified; E86.1 Hypovolemia; Y83.8 Other surgical procedures as the cause of abnormal reaction of the patient, or of later complication, without mention of misadventure at the time of the procedure; V58.5XXA Driver of pick-up truck or van injured in noncollision transport accident in traffic accident, initial encounter; Y92.410 Unspecified street and highway as the place of occurrence of the external cause; Z98.890 Other specified postprocedural states; Z79.82 Long term (current) use of aspirin; Z78.1 Physical restraint status; E87.6 Hypokalemia; E83.42 Hypomagnesemia
CPT/HCPCS: 36415; 36416; 36430; 36556; 36600; 70450; 71045; 71260; 72125; 72170; 74177; 80048; 80053; 80307; 81001; 82533; 82805; 83605; 83690; 83735; 83880; 84100; 84146; 84484; 85014; 85018; 85025; 85049; 85384; 85520; 85610; 85730; 86850; 86900; 86901; 90471; 90715; 93005; 93010; 93306; 94002; 94003; 94640; 94660; 96365; 96374; 96375; C1776; C9113; G0390; J0360; J0690; J1100; J1650; J1720; J1885; J1940; J2270; J2370; J2405; J2543; J2704; J2765; J2920; J2997; J3475; J3490; J7050; J7620; P9016; P9045; Q9967; S0028; U0002; U0003; U0005

== ENCOUNTER 2021-11-17 23:11 | Inpatient (IN) | payer OTHER, SELFPAY ==
[~2021-11-17 23:11] MED LIST: ISOVUE-370 76%-LOCM 1 ML ONE
[2021-11-18 00:02] LABS: #Lymphocytes 0.8 thou/uL (1.20-3.40); #Monocytes 0.8 thou/uL (0.11-0.59); %Eosinophils 0.2 % (0.0-10.0); %Lymphocytes 7.2 % (21.0-51.0); %Monocytes 6.6 % (0.0-10.0); %Neutrophils 85.9 % (42.0-75.0); Hemoglobin 5.5 g/dL (14.0-18.0); Mean Corpuscular HGB CONC 30.4 g/dL (32.0-36.0); Mean Corpuscular Hemoglobin 26.5 pg (27.0-31.0); Mean Corpuscular Volume 87.1 fL (78.0-98.0); Mean Platelet Volume 7.4 fL (7.4-10.4); Platelet Count 497 thou/uL (130-400); RBC Distribution Width 18.1 % (11.5-14.5); Red Blood Cell (RBC) Count 2.08 mill/uL (4.70-6.10); White Blood Cell (WBC) Count 11.7 thou/uL (4.8-10.8)
[2021-11-18 00:03] LABS: INR-International Normal Ratio 1.3; Prothrombin Time 16.3 sec (12.0-14.7)
[2021-11-18 00:04] LABS: PTT 27.6 sec (22.9-36.1)
[2021-11-18 00:12] LABS: ALT (SGPT) 10 U/L (8-55); AST (SGOT) 7 U/L (5-34); Albumin 2.6 g/dL (3.5-5.0); Alkaline Phosphatase 62 U/L (40-110); Anion Gap 16 mmol/L (10-20); BUN (Urea Nitrogen) 48 mg/dL (8.9-20.6); Bilirubin, Total 0.3 mg/dL (0.2-1.2); Calc. Creatinine Clearance 0 mL/min (70-130); Calcium 7.7 mg/dL (7.8-10.44); Carbon Dioxide 20 mmol/L (22-29); Chloride 105 mmol/L (98-107); Globulin 3.5 g/dL (2.4-3.5); Glucose 123 mg/dL (70-105); Lipase 18 U/L (8-78); Protein, Total 6.1 g/dL (6.0-8.3); Sodium 137 mmol/L (136-145)
[2021-11-18] MEDS ORDERED: Dextrose 50% Abboject 50 ML SYRINGE SLOW IVP PRN (02:46)
[2021-11-18] MEDS ORDERED: Dextrose 5% in Water 1,000 ML IV PRN (02:46)
[2021-11-18] MEDS ORDERED: Ondansetron PF 4 MG/2 ML Vial IVP PRN (02:46)
[2021-11-18] MEDS ORDERED: Ondansetron ODT 4 MG TAB PO PRN (02:46)
[2021-11-18] MEDS ORDERED: Morphine 2 MG/ML VIAL SLOW IVP PRN (02:51)
[2021-11-18 04:35] LABS: SARS-CoV-2 NAA Rapid Test Not Detected (NotDetected)
[2021-11-18] MEDS: Sodium Chloride 0.9% 1,000 ML IV SCH ×3 (04:56→19:53)
[2021-11-18 06:41] LABS: #Lymphocytes 1.2 thou/uL (1.20-3.40); #Monocytes 0.7 thou/uL (0.11-0.59); %Basophils 0.1 % (0.0-1.0); %Eosinophils 0.2 % (0.0-10.0); %Monocytes 6.8 % (0.0-10.0); Hemoglobin 6.5 g/dL (14.0-18.0); Mean Corpuscular HGB CONC 31.3 g/dL (32.0-36.0); Mean Corpuscular Hemoglobin 27.1 pg (27.0-31.0); Mean Corpuscular Volume 86.7 fL (78.0-98.0); Mean Platelet Volume 6.9 fL (7.4-10.4); Platelet Count 450 thou/uL (130-400); RBC Distribution Width 16.4 % (11.5-14.5); White Blood Cell (WBC) Count 9.9 thou/uL (4.8-10.8)
[2021-11-18 07:03] LABS: Anion Gap 11 mmol/L (10-20); BUN (Urea Nitrogen) 34 mg/dL (8.9-20.6); Calc. Creatinine Clearance 295 mL/min (70-130); Carbon Dioxide 25 mmol/L (22-29); Chloride 107 mmol/L (98-107); Glucose 108 mg/dL (70-105); Magnesium 1.7 mg/dL (1.6-2.6); Potassium 4.2 mmol/L (3.5-5.1); Sodium 139 mmol/L (136-145)
[2021-11-18] MEDS ORDERED: Magnesium 2 GM/50 ML(in water) 2 GM in Premix Bag 1 BAG IVPB SCH (07:15)
[2021-11-18] MEDS ORDERED: Pantoprazole 80 MG, Admixture Fee 1 EACH in Sodium Chloride 0.9% 100 ML IVPB SCH (07:15)
[2021-11-18 07:23] LABS: Phosphorus 4.3 mg/dL (2.3-4.7)
[2021-11-18] MEDS ORDERED: Pantoprazole 40 MG VIAL IVP SCH (09:00)
[2021-11-18] MEDS ORDERED: Lidocaine 1% PF 5 ML VIAL ONE (15:11)
[2021-11-18] MEDS ORDERED: PROPOFOL 200 MG/20 ML VIAL ONE (15:11)
[2021-11-18] MEDS: Pantoprazole 40 MG VIAL IVP SCH (19:53)
[2021-11-19] MEDS: Sodium Chloride 0.9% 1,000 ML IV SCH ×2 (03:27→11:35)
[2021-11-19 04:03] LABS: #Eosinphils 0.1 thou/uL (0.0-0.7); #Lymphocytes 0.9 thou/uL (1.20-3.40); #Monocytes 0.7 thou/uL (0.11-0.59); #Neutrophils 6.3 thou/uL (1.40-6.50); %Basophils 0.3 % (0.0-1.0); %Eosinophils 0.7 % (0.0-10.0); %Lymphocytes 11.7 % (21.0-51.0); %Monocytes 8.4 % (0.0-10.0); %Neutrophils 78.9 % (42.0-75.0); Mean Corpuscular HGB CONC 30.6 g/dL (32.0-36.0); Mean Corpuscular Hemoglobin 26.8 pg (27.0-31.0); Mean Corpuscular Volume 87.6 fL (78.0-98.0); Mean Platelet Volume 6.7 fL (7.4-10.4); Platelet Count 383 thou/uL (130-400); RBC Distribution Width 17.9 % (11.5-14.5); Red Blood Cell (RBC) Count 2.23 mill/uL (4.70-6.10)
[2021-11-19 05:00] LABS: Anion Gap 9 mmol/L (10-20); BUN (Urea Nitrogen) 15 mg/dL (8.9-20.6); Calc. Creatinine Clearance 345 mL/min (70-130); Calcium 7.8 mg/dL (7.8-10.44); Carbon Dioxide 25 mmol/L (22-29); Chloride 107 mmol/L (98-107); Glucose 81 mg/dL (70-105); Sodium 137 mmol/L (136-145)
[2021-11-19] MEDS: Ferrous Sulfate 325 MG TAB PO SCH ×2 (09:37→17:04)
[2021-11-19] MEDS: Ascorbic Acid 500 mg Chewable Tablet PO SCH ×2 (09:37→21:06)
[2021-11-19] MEDS: Pantoprazole 40 MG VIAL IVP SCH ×2 (09:37→21:09)
[2021-11-19 19:18] LABS: Hemoglobin 7.9 g/dL (14.0-18.0)
[2021-11-20 06:39] LABS: Hemoglobin 7.8 g/dL (14.0-18.0)
[2021-11-20] MEDS: Ascorbic Acid 500 mg Chewable Tablet PO SCH ×2 (08:05→20:08)
[2021-11-20] MEDS: Ferrous Sulfate 325 MG TAB PO SCH ×2 (08:05→17:31)
[2021-11-20] MEDS: Pantoprazole 40 MG VIAL IVP SCH ×2 (08:05→20:08)
[2021-11-20] MEDS: hydrALAZINE 20 MG/ML VIAL SLOW IVP PRN (08:14)
[2021-11-20] MEDS: Senokot S 8.6-50 MG TAB PO SCH (20:08)
[2021-11-21] MEDS: hydrALAZINE 20 MG/ML VIAL SLOW IVP PRN ×3 (00:17→20:57)
[2021-11-21] MEDS: Ascorbic Acid 500 mg Chewable Tablet PO SCH ×2 (09:02→20:41)
[2021-11-21] MEDS: Pantoprazole 40 MG VIAL IVP SCH (09:02)
[2021-11-21] MEDS: Senokot S 8.6-50 MG TAB PO SCH ×2 (09:02→20:42)
[2021-11-21] MEDS: Polyethylene Glycol 3350 17 GM Packet PO SCH (09:02)
[2021-11-21] MEDS: Ferrous Sulfate 325 MG TAB PO SCH ×2 (09:02→16:33)
[2021-11-21] MEDS: Enoxaparin Sodium 40 MG/0.4 ML SYRINGE SC SCH (20:41)
[2021-11-22] MEDS: hydrALAZINE 20 MG/ML VIAL SLOW IVP PRN (01:04)
[2021-11-22 06:51] LABS: Hemoglobin 8.3 g/dL (14.0-18.0)
[2021-11-22] MEDS: Polyethylene Glycol 3350 17 GM Packet PO SCH (08:54)
[2021-11-22] MEDS: Enoxaparin Sodium 40 MG/0.4 ML SYRINGE SC SCH ×2 (08:55→21:10)
[2021-11-22] MEDS: Ferrous Sulfate 325 MG TAB PO SCH ×2 (08:55→17:15)
[2021-11-22] MEDS: Senokot S 8.6-50 MG TAB PO SCH ×2 (08:55→21:11)
[2021-11-22] MEDS: Ascorbic Acid 500 mg Chewable Tablet PO SCH ×2 (08:55→21:11)
[2021-11-22] MEDS ORDERED: Enoxaparin Sodium 40 MG/0.4 ML SYRINGE SC SCH (09:00)
[2021-11-22 13:06] VITALS: BMI 47.7
[2021-11-23] MEDS: Enoxaparin Sodium 40 MG/0.4 ML SYRINGE SC SCH ×2 (08:25→19:54)
[2021-11-23] MEDS: Polyethylene Glycol 3350 17 GM Packet PO SCH (08:25)
[2021-11-23] MEDS: Ascorbic Acid 500 mg Chewable Tablet PO SCH ×2 (08:25→19:54)
[2021-11-23] MEDS: Senokot S 8.6-50 MG TAB PO SCH ×2 (08:25→18:57)
[2021-11-23] MEDS: Ferrous Sulfate 325 MG TAB PO SCH ×2 (08:25→16:37)
[2021-11-23] MEDS ORDERED: Amlodipine 5 MG TAB PO SCH (09:00)
[2021-11-23] MEDS: hydrALAZINE 20 MG/ML VIAL SLOW IVP PRN (19:54)
[2021-11-24 07:14] LABS: #Eosinphils 0.1 thou/uL (0.0-0.7); #Lymphocytes 0.9 thou/uL (1.20-3.40); #Monocytes 0.5 thou/uL (0.11-0.59); %Eosinophils 1.5 % (0.0-10.0); %Lymphocytes 11.8 % (21.0-51.0); %Monocytes 6.7 % (0.0-10.0); Hemoglobin 8.9 g/dL (14.0-18.0); Mean Corpuscular HGB CONC 29.9 g/dL (32.0-36.0); Mean Corpuscular Hemoglobin 26.8 pg (27.0-31.0); Mean Corpuscular Volume 89.9 fL (78.0-98.0); Mean Platelet Volume 7.2 fL (7.4-10.4); Platelet Count 405 thou/uL (130-400); RBC Distribution Width 17.6 % (11.5-14.5); White Blood Cell (WBC) Count 7.5 thou/uL (4.8-10.8)
[2021-11-24 07:24] LABS: Anion Gap 13 mmol/L (10-20); BUN (Urea Nitrogen) 6 mg/dL (8.9-20.6); Calc. Creatinine Clearance 336 mL/min (70-130); Calcium 8.9 mg/dL (7.8-10.44); Carbon Dioxide 28 mmol/L (22-29); Chloride 101 mmol/L (98-107); Glucose 93 mg/dL (70-105); Magnesium 1.8 mg/dL (1.6-2.6); Phosphorus 3.7 mg/dL (2.3-4.7); Potassium 3.9 mmol/L (3.5-5.1); Sodium 138 mmol/L (136-145)
[2021-11-24] MEDS: Ferrous Sulfate 325 MG TAB PO SCH ×2 (09:08→17:22)
[2021-11-24] MEDS: Senokot S 8.6-50 MG TAB PO SCH ×2 (09:08→19:07)
[2021-11-24] MEDS: Enoxaparin Sodium 40 MG/0.4 ML SYRINGE SC SCH ×2 (09:08→21:00)
[2021-11-24] MEDS: Ascorbic Acid 500 mg Chewable Tablet PO SCH ×2 (09:08→21:00)
[2021-11-24] MEDS: Polyethylene Glycol 3350 17 GM Packet PO SCH (09:09)
[2021-11-24] MEDS: Amlodipine 10 MG TAB PO SCH (09:20)
[2021-11-25] MEDS: Ferrous Sulfate 325 MG TAB PO SCH ×2 (09:51→17:38)
[2021-11-25] MEDS: Ascorbic Acid 500 mg Chewable Tablet PO SCH ×2 (09:51→20:17)
[2021-11-25] MEDS: Polyethylene Glycol 3350 17 GM Packet PO SCH (09:52)
[2021-11-25] MEDS: Amlodipine 10 MG TAB PO SCH (09:52)
[2021-11-25] MEDS: Senokot S 8.6-50 MG TAB PO SCH ×2 (09:52→20:18)
[2021-11-25] MEDS: Enoxaparin Sodium 40 MG/0.4 ML SYRINGE SC SCH ×2 (09:52→20:18)
[2021-11-26] MEDS: Ascorbic Acid 500 mg Chewable Tablet PO SCH ×2 (08:53→20:27)
[2021-11-26] MEDS: Enoxaparin Sodium 40 MG/0.4 ML SYRINGE SC SCH ×2 (08:53→20:27)
[2021-11-26] MEDS: Senokot S 8.6-50 MG TAB PO SCH ×2 (08:53→20:27)
[2021-11-26] MEDS: Polyethylene Glycol 3350 17 GM Packet PO SCH (08:53)
[2021-11-26] MEDS: Ferrous Sulfate 325 MG TAB PO SCH ×2 (08:53→15:55)
[2021-11-26] MEDS: Amlodipine 10 MG TAB PO SCH (08:53)
[2021-11-27] MEDS: Senokot S 8.6-50 MG TAB PO SCH ×2 (08:43→20:51)
[2021-11-27] MEDS: Ascorbic Acid 500 mg Chewable Tablet PO SCH ×2 (08:43→20:51)
[2021-11-27] MEDS: Enoxaparin Sodium 40 MG/0.4 ML SYRINGE SC SCH ×2 (08:43→20:51)
[2021-11-27] MEDS: Polyethylene Glycol 3350 17 GM Packet PO SCH (08:43)
[2021-11-27] MEDS: Amlodipine 10 MG TAB PO SCH (08:43)
[2021-11-27] MEDS: Ferrous Sulfate 325 MG TAB PO SCH ×2 (08:43→16:07)
[2021-11-28] MEDS: Ascorbic Acid 500 mg Chewable Tablet PO SCH ×2 (08:31→19:51)
[2021-11-28] MEDS: Enoxaparin Sodium 40 MG/0.4 ML SYRINGE SC SCH ×2 (08:31→19:51)
[2021-11-28] MEDS: Polyethylene Glycol 3350 17 GM Packet PO SCH (08:31)
[2021-11-28] MEDS: Senokot S 8.6-50 MG TAB PO SCH ×2 (08:31→19:44)
[2021-11-28] MEDS: Ferrous Sulfate 325 MG TAB PO SCH ×2 (08:31→16:28)
[2021-11-28] MEDS: Amlodipine 10 MG TAB PO SCH (08:31)
[2021-11-29] MEDS: Enoxaparin Sodium 40 MG/0.4 ML SYRINGE SC SCH ×2 (08:29→19:43)
[2021-11-29] MEDS: Amlodipine 10 MG TAB PO SCH (08:30)
[2021-11-29] MEDS: Senokot S 8.6-50 MG TAB PO SCH ×2 (08:30→19:43)
[2021-11-29] MEDS: Ferrous Sulfate 325 MG TAB PO SCH ×3 (08:30→19:43)
[2021-11-29] MEDS: Ascorbic Acid 500 mg Chewable Tablet PO SCH ×2 (08:30→19:43)
[2021-11-29] MEDS: Polyethylene Glycol 3350 17 GM Packet PO SCH (08:30)
[2021-11-30] MEDS: Ferrous Sulfate 325 MG TAB PO SCH ×2 (08:38→20:29)
[2021-11-30] MEDS: Amlodipine 10 MG TAB PO SCH (08:38)
[2021-11-30] MEDS: Ascorbic Acid 500 mg Chewable Tablet PO SCH ×2 (08:38→20:29)
[2021-11-30] MEDS: Senokot S 8.6-50 MG TAB PO SCH ×2 (08:38→20:29)
[2021-11-30] MEDS: Polyethylene Glycol 3350 17 GM Packet PO SCH (08:38)
[2021-11-30] MEDS: Enoxaparin Sodium 40 MG/0.4 ML SYRINGE SC SCH ×2 (08:38→20:29)
[2021-12-01] MEDS: Enoxaparin Sodium 40 MG/0.4 ML SYRINGE SC SCH ×2 (09:12→20:41)
[2021-12-01] MEDS: Senokot S 8.6-50 MG TAB PO SCH ×2 (09:12→20:41)
[2021-12-01] MEDS: Ferrous Sulfate 325 MG TAB PO SCH ×2 (09:12→20:41)
[2021-12-01] MEDS: Polyethylene Glycol 3350 17 GM Packet PO SCH (09:13)
[2021-12-01] MEDS: Amlodipine 10 MG TAB PO SCH (09:13)
[2021-12-01] MEDS: Ascorbic Acid 500 mg Chewable Tablet PO SCH ×2 (09:13→20:41)
[2021-12-02 06:22] LABS: #Eosinphils 0.1 thou/uL (0.0-0.7); #Lymphocytes 1.1 thou/uL (1.20-3.40); #Monocytes 0.5 thou/uL (0.11-0.59); %Basophils 0.3 % (0.0-1.0); %Eosinophils 1.5 % (0.0-10.0); %Lymphocytes 13.9 % (21.0-51.0); %Neutrophils 77.3 % (42.0-75.0); Hemoglobin 10.9 g/dL (14.0-18.0); Mean Corpuscular HGB CONC 30.4 g/dL (32.0-36.0); Mean Corpuscular Hemoglobin 26.7 pg (27.0-31.0); Mean Corpuscular Volume 87.9 fL (78.0-98.0); Mean Platelet Volume 7.6 fL (7.4-10.4); Platelet Count 426 thou/uL (130-400); RBC Distribution Width 18.1 % (11.5-14.5); Red Blood Cell (RBC) Count 4.08 mill/uL (4.70-6.10); White Blood Cell (WBC) Count 7.7 thou/uL (4.8-10.8)
[2021-12-02 06:38] LABS: Anion Gap 16 mmol/L (10-20); BUN (Urea Nitrogen) 12 mg/dL (8.9-20.6); Calc. Creatinine Clearance 315 mL/min (70-130); Carbon Dioxide 22 mmol/L (22-29); Estimated GFR 116; Glucose 93 mg/dL (70-105); Magnesium 1.8 mg/dL (1.6-2.6); Phosphorus 4.5 mg/dL (2.3-4.7); Potassium 4.1 mmol/L (3.5-5.1); Sodium 136 mmol/L (136-145)
[2021-12-02 06:42] LABS: Chloride 102 mmol/L (98-107)
[2021-12-02] MEDS: Ascorbic Acid 500 mg Chewable Tablet PO SCH ×2 (08:51→20:14)
[2021-12-02] MEDS: Enoxaparin Sodium 40 MG/0.4 ML SYRINGE SC SCH ×2 (08:51→20:16)
[2021-12-02] MEDS: Amlodipine 10 MG TAB PO SCH (08:51)
[2021-12-02] MEDS: Senokot S 8.6-50 MG TAB PO SCH ×2 (08:51→20:15)
[2021-12-02] MEDS: Ferrous Sulfate 325 MG TAB PO SCH ×2 (08:51→20:15)
[2021-12-02] MEDS: Polyethylene Glycol 3350 17 GM Packet PO SCH (08:51)
[2021-12-03] MEDS: Enoxaparin Sodium 40 MG/0.4 ML SYRINGE SC SCH ×2 (08:34→20:16)
[2021-12-03] MEDS: Amlodipine 10 MG TAB PO SCH (08:34)
[2021-12-03] MEDS: Polyethylene Glycol 3350 17 GM Packet PO SCH (08:34)
[2021-12-03] MEDS: Ascorbic Acid 500 mg Chewable Tablet PO SCH ×2 (08:35→20:17)
[2021-12-03] MEDS: Ferrous Sulfate 325 MG TAB PO SCH ×2 (08:35→20:17)
[2021-12-03] MEDS: Senokot S 8.6-50 MG TAB PO SCH ×2 (08:36→20:17)
[2021-12-04] MEDS: Enoxaparin Sodium 40 MG/0.4 ML SYRINGE SC SCH ×2 (09:07→20:29)
[2021-12-04] MEDS: Amlodipine 10 MG TAB PO SCH (09:07)
[2021-12-04] MEDS: Polyethylene Glycol 3350 17 GM Packet PO SCH (09:07)
[2021-12-04] MEDS: Senokot S 8.6-50 MG TAB PO SCH ×2 (09:07→20:28)
[2021-12-04] MEDS: Ascorbic Acid 500 mg Chewable Tablet PO SCH ×2 (09:07→20:27)
[2021-12-04] MEDS: Ferrous Sulfate 325 MG TAB PO SCH ×2 (09:07→20:28)
[2021-12-05 08:04] VITALS: BP 93/53; TEMP 97.4
[2021-12-05] MEDS: Ascorbic Acid 500 mg Chewable Tablet PO SCH (09:42)
[2021-12-05] MEDS: Amlodipine 10 MG TAB PO SCH (09:42)
[2021-12-05] MEDS: Polyethylene Glycol 3350 17 GM Packet PO SCH (09:43)
[2021-12-05] MEDS: Enoxaparin Sodium 40 MG/0.4 ML SYRINGE SC SCH (09:43)
[2021-12-05] MEDS: Ferrous Sulfate 325 MG TAB PO SCH (09:43)
[2021-12-05] MEDS: Senokot S 8.6-50 MG TAB PO SCH (09:43)
== END 2021-12-05 14:53 | DRG 378 ==
LOC: ERS 23:11 → IMCU/EMU 11-18 02:54 → T4-A 11-19 16:10
PROVIDERS: ADMIT Specialist; ATTEND Surgery
PROC: 30233N1 Transfusion of Nonautologous Red Blood Cells into Peripheral Vein, Percutaneous Approach (ICD-10-PCS; principal; 2021-11-18)
PROC: 0DB58ZX Excision of Esophagus, Via Natural or Artificial Opening Endoscopic, Diagnostic (ICD-10-PCS; 2021-11-18)
PROC: 0DB78ZX Excision of Stomach, Pylorus, Via Natural or Artificial Opening Endoscopic, Diagnostic (ICD-10-PCS; 2021-11-18)
DX: K25.6 Chronic or unspecified gastric ulcer with both hemorrhage and perforation (principal); D62 Acute posthemorrhagic anemia; K22.10 Ulcer of esophagus without bleeding; T81.49XA Infection following a procedure, other surgical site, initial encounter; T81.30XA Disruption of wound, unspecified, initial encounter; Z68.42 Body mass index [BMI] 45.0-49.9, adult; Z20.822 Contact with and (suspected) exposure to COVID-19; G47.33 Obstructive sleep apnea (adult) (pediatric); I10 Essential (primary) hypertension; E66.01 Morbid (severe) obesity due to excess calories; K44.9 Diaphragmatic hernia without obstruction or gangrene; K22.70 Barrett's esophagus without dysplasia; Z79.82 Long term (current) use of aspirin; Z91.14 Patient's other noncompliance with medication regimen; Z79.899 Other long term (current) drug therapy; S12.500D Unspecified displaced fracture of sixth cervical vertebra, subsequent encounter for fracture with routine healing; S22.039D Unspecified fracture of third thoracic vertebra, subsequent encounter for fracture with routine healing; S22.39XD Fracture of one rib, unspecified side, subsequent encounter for fracture with routine healing; S14.126 Central cord syndrome at C6 level of cervical spinal cord
CPT/HCPCS: 36415; 36416; 36430; 74177; 80048; 80053; 83690; 83735; 84100; 85014; 85018; 85025; 85610; 85730; 86850; 86900; 86901; 88305; 88312; 93005; 94660; 96374; 97139; C9113; J0360; J1650; J2270; J2704; J3475; J3490; J7050; P9016; Q9966; U0002; U0003; U0005

== ENCOUNTER 2022-07-04 05:36 | Inpatient (IN) | payer OTHER, SELFPAY ==
[2022-07-04 06:05] LABS: #Eosinphils 0.1 thou/uL (0.0-0.7); #Lymphocytes 1.4 thou/uL (1.20-3.40); #Monocytes 0.7 thou/uL (0.11-0.59); #Neutrophils 15.2 thou/uL (1.40-6.50); %Basophils 0.1 % (0.0-1.0); %Eosinophils 0.8 % (0.0-10.0); %Neutrophils 87.1 % (42.0-75.0); Hemoglobin 12.8 g/dL (14.0-18.0); Mean Corpuscular HGB CONC 30.3 g/dL (32.0-36.0); Mean Corpuscular Hemoglobin 24.9 pg (27.0-31.0); Mean Corpuscular Volume 82.1 fl (78.0-98.0); Mean Platelet Volume 8.5 fL (7.4-10.4); Platelet Count 385 10x3/uL (130-400); RBC Distribution Width 17.1 % (11.5-14.5); Red Blood Cell (RBC) Count 5.16 mill/uL (4.70-6.10); White Blood Cell (WBC) Count 17.4 10x3/uL (4.8-10.8)
[2022-07-04 06:13] LABS: INR-International Normal Ratio 0.9; PTT 25.6 sec (22.9-36.1); Prothrombin Time 12.8 sec (12.0-14.7)
[2022-07-04 06:35] LABS: ALT (SGPT) 14 U/L (8-55); AST (SGOT) 18 U/L (5-34); Albumin 3.6 g/dL (3.5-5.0); Alcohol Less than 10 mg/dL (Less than 10); Alkaline Phosphatase 87 U/L (40-110); Anion Gap 13 mmol/L (10-20); BUN (Urea Nitrogen) 13 mg/dL (8.9-20.6); Bilirubin, Total 0.4 mg/dL (0.2-1.2); Calc. Creatinine Clearance 0 mL/min (70-130); Carbon Dioxide 24 mmol/L (22-29); Chloride 105 mmol/L (98-107); Estimated GFR 110; Globulin 4.4 g/dL (2.4-3.5); Glucose 119 mg/dL (70-105); Lipase 41 U/L (8-78); Sodium 138 mmol/L (136-145)
[2022-07-04 06:36] LABS: Acetaminophen Less than 10.0 mcg/mL (10.0-30.0); Alcohol Less than 10 mg/dL (Less than 10); CK (CPK) 87 U/L (30-200); Salicylate Less than 8.0 mg/dL (15.0-30.0)
[2022-07-04 08:26] LABS: Amphetamine Not Detected (NotDetected); Barbiturates Screen Not Detected (NotDetected); Benzodiazepine Screen Not Detected (NotDetected); Cocaine Metabolite Screen Not Detected (NotDetected); Methadone Not Detected (NotDetected); Methamphetamine Not Detected (NotDetected); Opiate Screen Not Detected (NotDetected); Oxycodone Screen Not Detected (NotDetected); Phencyclidine (PCP) Not Detected (NotDetected); THC/Cannabinoid Screen Not Detected (NotDetected); Tricyclic Screen Not Detected (NotDetected)
[2022-07-04] MEDS ORDERED: Iopamidol 370 76% 100 ML VIAL ONE (10:18)
[2022-07-04] MEDS ORDERED: Fentanyl 100 MCG/2 ML VIAL SLOW IVP PRN (14:07)
[2022-07-04] MEDS ORDERED: Sodium Chloride 0.9% 1,000 ML IV SCH (14:15)
[2022-07-04] MEDS ORDERED: Ondansetron ODT 4 MG TAB SL PRN (14:15)
[2022-07-04] MEDS ORDERED: Acetaminophen 325 MG TAB PO PRN (14:15)
[2022-07-04] MEDS ORDERED: Ondansetron PF 4 MG/2 ML Vial IVP PRN (14:15)
[2022-07-04] MEDS ORDERED: TETANUS, DIPHTHERIA TOX,ADULT (TDVAX) 0.5 ML VIAL IM ONE (14:26)
[2022-07-04] MEDS ORDERED: Ipratropium/Albuterol 3 ML NEB NEB PRN (14:26)
[2022-07-04 16:50] VITALS: BMI 52.0
[2022-07-04] MEDS: Acetaminophen 325 MG TAB PO SCH (18:27)
[2022-07-04] MEDS: traMADol HCl 50 MG TAB PO SCH (18:29)
[2022-07-04] MEDS: Cyclobenzaprine 10 MG TAB PO PRN (22:05)
[2022-07-05] MEDS: Acetaminophen 325 MG TAB PO SCH (00:47)
[2022-07-05] MEDS: traMADol HCl 50 MG TAB PO SCH ×4 (00:50→17:47)
[2022-07-05] MEDS: Polyethylene Glycol 3350 17 GM Packet PO SCH (09:24)
[2022-07-05] MEDS: Amlodipine 10 MG TAB PO SCH (09:24)
[2022-07-05] MEDS: traMADol HCl 50 MG TAB PO PRN (17:48)
[2022-07-05] MEDS: Cyclobenzaprine 10 MG TAB PO PRN (21:04)
[2022-07-06] MEDS: traMADol HCl 50 MG TAB PO SCH ×3 (00:30→11:19)
[2022-07-06] MEDS: traMADol HCl 50 MG TAB PO PRN (00:30)
[2022-07-06 07:43] VITALS: TEMP 97.4
[2022-07-06] MEDS: Amlodipine 10 MG TAB PO SCH (08:00)
[2022-07-06] MEDS: Polyethylene Glycol 3350 17 GM Packet PO SCH (08:00)
[2022-07-06 11:59] VITALS: BP 133/79
== END 2022-07-06 13:00 | disposition home or self-care (01) | DRG 184 ==
LOC: ERS 05:36 → ERHOLD 09:10 → SURG A 13:31
PROVIDERS: ADMIT Surgery; ATTEND Surgery
DX: S22.42XA Multiple fractures of ribs, left side, initial encounter for closed fracture (principal); S12.500A Unspecified displaced fracture of sixth cervical vertebra, initial encounter for closed fracture; S12.600A Unspecified displaced fracture of seventh cervical vertebra, initial encounter for closed fracture; Z68.43 Body mass index [BMI] 50.0-59.9, adult; Z20.822 Contact with and (suspected) exposure to COVID-19; I10 Essential (primary) hypertension; D64.9 Anemia, unspecified; E66.9 Obesity, unspecified; V89.2XXA Person injured in unspecified motor-vehicle accident, traffic, initial encounter; Z90.49 Acquired absence of other specified parts of digestive tract
CPT/HCPCS: 36415; 70450; 71260; 72125; 74177; 80053; 80306; 80307; 82550; 83690; 85025; 85610; 85730; 86850; 86900; 86901; 93005; G0390; Q9967